=== PATIENT | female | born 1965 | race Caucasian/White ===

== ENCOUNTER → 2016-12-22 | Outpatient (CLI) | payer OTHER ==
[2016-12-22 08:59] LABS: Basophils # (A) 0.1 k/uL (0-0.2); Basophils % (A) 1 %; CH 29.8; CHCM 34.2; Eosinophils # (A) 0.2 k/uL (0-0.7); Eosinophils % (A) 2 %; HCT 51.3 % (34.0-46.0); HDW 2.68; HGB 17.2 gm/dL (11.4-16.0); Luc # (Auto) 0.18; Luc % (Auto) 1; Lymphocytes # (A) 2.5 k/uL (1.0-4.8); Lymphocytes % (A) 19 %; MCH 29.3 pg (25.0-35.0); MCHC 33.4 g/dL (31.0-37.0); MCV 87.7 fL (80.0-100.0); Monocytes # (A) 0.7 k/uL (0-1.0); Monocytes % (A) 5 %; Neutrophils # (A) 9.3 k/uL (1.3-7.7); Neutrophils % (A) 72 %; RBC 5.86 m/uL (3.80-5.40); RDW 14.5 % (11.5-15.5); WBC 12.9 k/uL (3.8-10.6)
[2016-12-22 10:27] LABS: ALT 37 U/L (9-52); AST 22 U/L (14-36); Alkaline Phosphatase 114 U/L (38-126); Anion Gap 13 mmol/L; Blood Urea Nitrogen 15 mg/dL (7-17); C Reactive Protein 15.9 mg/L (<10.0); Calcium 10.7 mg/dL (8.4-10.2); Carbon Dioxide 27 mmol/L (22-30); Chloride 100 mmol/L (98-107); Cholesterol 189 mg/dL (<200); Creatine Kinase 47 U/L (30-135); Glucose 117 mg/dL (74-99); HDL Cholesterol 67 mg/dL (40-60); Lithium 0.8 mmol/L; Magnesium 2.1 mg/dL (1.6-2.3); Non-African American GFR(MDRD) 58 (>60 ml/min/1.73 sqM); Potassium 3.4 mmol/L (3.5-5.1); Sodium 140 mmol/L (137-145); Total Bilirubin 0.8 mg/dL (0.2-1.3); Total Protein 7.8 g/dL (6.3-8.2); Uric Acid 10.1 mg/dL (3.7-7.4)
[2016-12-22 12:07] LABS: Hemoglobin A1C 5.6 % (4.2-6.1)
[2016-12-22 12:20] LABS: Erythrocyte Sedimentation Rate 9 mm/hr (0-20)
[2016-12-22 13:54] LABS: Vitamin B12 913 pg/mL (239-931)
== END | disposition home or self-care (01) ==
LOC: LABWHC1 08:28
PROVIDERS: ATTEND Family Medicine
DX: N18.3 Chronic kidney disease, stage 3 (moderate) (principal); E03.9 Hypothyroidism, unspecified; F31.9 Bipolar disorder, unspecified
CPT/HCPCS: 36415; 80053; 80061; 80178; 82550; 82607; 83036; 83735; 84439; 84443; 84550; 85025; 85652; 86140

== ENCOUNTER → 2017-08-17 | Outpatient (CLI) | payer OTHER ==
[2017-08-17 08:53] LABS: Basophils % (A) 0 %; Eosinophils # (A) 0.2 k/uL (0-0.7); Eosinophils % (A) 2 %; HCT 42.2 % (34.0-46.0); HGB 14.6 gm/dL (11.4-16.0); Lymphocytes # (A) 2.5 k/uL (1.0-4.8); Lymphocytes % (A) 19 %; MCH 28.3 pg (25.0-35.0); MCHC 34.6 g/dL (31.0-37.0); MCV 81.9 fL (80.0-100.0); Mean Platelet Volume 8.8; Monocytes # (A) 0.6 k/uL (0-1.0); Monocytes % (A) 5 %; Neutrophils # (A) 9.3 k/uL (1.3-7.7); Neutrophils % (A) 72 %; Platelet Count 268 k/uL (150-450); RBC 5.15 m/uL (3.80-5.40); RDW 13.8 % (11.5-15.5); WBC 12.9 k/uL (3.8-10.6)
[2017-08-17 10:17] LABS: Albumin 4.2 g/dL (3.5-5.0); C Reactive Protein 27.4 mg/L (<10.0); Calcium 10.7 mg/dL (8.4-10.2); Lithium 0.8 mmol/L; Total Bilirubin 0.7 mg/dL (0.2-1.3); Total Protein 6.8 g/dL (6.3-8.2)
[2017-08-17 10:26] LABS: T4, Free (Free Thyroxine) 1.47 ng/dL (0.78-2.19)
[2017-08-17 11:05] LABS: Erythrocyte Sedimentation Rate 34 mm/hr (0-20)
[2017-08-17 15:58] LABS: Vitamin D 25 Hydroxy 24.3 ng/mL (30.0-100.0)
[2017-08-17 19:01] LABS: Hemoglobin A1C 5.6 % (4.0-6.0)
== END | disposition home or self-care (01) ==
LOC: LABWHC1 08:19
PROVIDERS: ATTEND Family Medicine
DX: F31.9 Bipolar disorder, unspecified (principal); R60.0 Localized edema; N18.3 Chronic kidney disease, stage 3 (moderate); Z13.220 Encounter for screening for lipoid disorders; Z79.2 Long term (current) use of antibiotics
CPT/HCPCS: 36415; 80053; 80061; 80178; 82306; 82607; 83036; 84439; 84443; 85025; 85652; 86140

== ENCOUNTER → 2017-08-25 | Outpatient (CLI) | payer OTHER | LOC: LABWHC1 12:30 | PROVIDERS: ATTEND Family Medicine | DX: N18.3 Chronic kidney disease, stage 3 (moderate) (principal) | CPT/HCPCS: 36415; 84132 ==

== ENCOUNTER → 2017-10-06 | Outpatient (CLI) | payer OTHER ==
[2017-10-06 10:45] LABS: Potassium 3.3 mmol/L (3.5-5.1)
== END | disposition home or self-care (01) ==
LOC: LABWHC1 09:58
PROVIDERS: ATTEND Family Medicine
DX: E87.6 Hypokalemia (principal)
CPT/HCPCS: 36415; 82565; 84132

== ENCOUNTER → 2018-01-20 | Outpatient (CLI) | payer OTHER ==
[2018-01-20 09:52] LABS: Basophils # (A) 0.1 k/uL (0-0.2); Basophils % (A) 0 %; Eosinophils # (A) 0.3 k/uL (0-0.7); Eosinophils % (A) 2 %; HCT 47.8 % (34.0-46.0); HGB 15.5 gm/dL (11.4-16.0); Lymphocytes # (A) 2.5 k/uL (1.0-4.8); Lymphocytes % (A) 15 %; MCH 28.1 pg (25.0-35.0); MCHC 32.5 g/dL (31.0-37.0); MCV 86.7 fL (80.0-100.0); Monocytes # (A) 0.8 k/uL (0-1.0); Monocytes % (A) 5 %; Neutrophils # (A) 12.6 k/uL (1.3-7.7); Neutrophils % (A) 77 %; Platelet Count 285 k/uL (150-450); RBC 5.51 m/uL (3.80-5.40); RDW 13.7 % (11.5-15.5); WBC 16.4 k/uL (3.8-10.6)
[2018-01-20 10:15] LABS: Albumin 4.6 g/dL (3.5-5.0); C Reactive Protein 20.5 mg/L (<10.0); Calcium 11.3 mg/dL (8.4-10.2); Lithium 0.9 mmol/L; Potassium 3.3 mmol/L (3.5-5.1); Total Bilirubin 0.9 mg/dL (0.2-1.3); Total Protein 7.6 g/dL (6.3-8.2)
[2018-01-20 10:23] LABS: T4, Free (Free Thyroxine) 1.4 ng/dL (0.78-2.19)
[2018-01-20 12:25] LABS: Erythrocyte Sedimentation Rate 28 mm/hr (0-20)
[2018-01-20 20:03] LABS: Hemoglobin A1C 5.6 % (4.0-6.0)
== END | disposition home or self-care (01) ==
LOC: LABWHC1 08:47
PROVIDERS: ATTEND Family Medicine
DX: N18.3 Chronic kidney disease, stage 3 (moderate) (principal); E87.6 Hypokalemia; R73.01 Impaired fasting glucose; F31.9 Bipolar disorder, unspecified; E03.9 Hypothyroidism, unspecified; Z79.2 Long term (current) use of antibiotics
CPT/HCPCS: 36415; 80053; 80061; 80178; 83036; 84439; 84443; 84480; 85025; 85652; 86140

== ENCOUNTER → 2018-06-20 | Outpatient (CLI) | payer OTHER ==
[2018-06-20 08:56] LABS: Basophils % (A) 0 %; Eosinophils # (A) 0.2 k/uL (0-0.7); Eosinophils % (A) 2 %; HCT 40.7 % (34.0-46.0); HGB 13.6 gm/dL (11.4-16.0); Lymphocytes % (A) 15 %; MCH 28.4 pg (25.0-35.0); MCHC 33.3 g/dL (31.0-37.0); MCV 85.2 fL (80.0-100.0); Mean Platelet Volume 9.1; Monocytes # (A) 0.5 k/uL (0-1.0); Monocytes % (A) 4 %; Neutrophils # (A) 10.1 k/uL (1.3-7.7); Neutrophils % (A) 78 %; Platelet Count 234 k/uL (150-450); RBC 4.77 m/uL (3.80-5.40); RDW 13.9 % (11.5-15.5)
[2018-06-20 11:13] LABS: Erythrocyte Sedimentation Rate 86 mm/hr (0-20)
[2018-06-20 18:34] LABS: Albumin 4.3 g/dL (3.80-4.90); Albumin/Globulin Ratio 2.15 (1.60-3.17); Anion Gap 8.3 mmol/L (4.00-12.00); C Reactive Protein 5.9 mg/dL (0.0-0.8); Calcium 10.1 mg/dL (8.7-10.3); Carbon Dioxide 26.7 mmol/L (21.6-31.8); LDL Cholesterol,Calculated 72.8 mg/dL (0.0-131.0); Total Bilirubin 0.5 mg/dL (0.3-1.2); Total Protein 6.3 g/dL (6.2-8.2); VLDL Calculation 21.2 mg/dL (5.00-40.00)
[2018-06-20 18:35] LABS: T4, Free (Free Thyroxine) 1.3 ng/dL (0.80-1.80)
[2018-06-20 20:47] LABS: Hemoglobin A1C 5.6 % (4.0-6.0)
== END ==
LOC: LABWHC1 08:19
PROVIDERS: ATTEND Family Medicine
DX: E03.9 Hypothyroidism, unspecified (principal); N18.3 Chronic kidney disease, stage 3 (moderate); R73.01 Impaired fasting glucose
CPT/HCPCS: 36415; 80053; 80061; 83036; 84439; 84443; 85025; 85652; 86140

== ENCOUNTER → 2018-11-15 | Outpatient (CLI) | payer OTHER ==
[2018-11-15 15:59] LABS: African American GFR (CKD) 74.5 (60.0-200.0); Anion Gap 8.6 mmol/L (4.00-12.00); Calcium 10.8 mg/dL (8.7-10.3); Carbon Dioxide 27.4 mmol/L (21.6-31.8); Lithium 1.7 mmol/L (1.0-1.2); Magnesium 2.2 mg/dL (1.5-2.4); Potassium 3.7 mmol/L (3.5-5.5)
== END | disposition home or self-care (01) ==
LOC: LABWHC1 08:58
PROVIDERS: ATTEND Family Medicine
DX: F31.62 Bipolar disorder, current episode mixed, moderate (principal); E87.6 Hypokalemia; N18.3 Chronic kidney disease, stage 3 (moderate); E83.42 Hypomagnesemia
CPT/HCPCS: 36415; 80048; 80178; 83735

== ENCOUNTER → 2024-05-15 | Outpatient (CLI) | payer BC ==
--- NOTE | 2024-05-15 13:09 | CT ---
EXAMINATION TYPE: CT hip RT wo con DATE OF EXAM: 05/15/2024 COMPARISON: None. CLINICAL INDICATION: Female, 58 years old with history of M25.551 R hip pain; PHH, RT hip FATIMAH protoc ol CT DLP: 1506 mGycm Automated exposure control for dose reduction was used. FINDINGS: Exam is for surgical treatment planning and not for diagnostic purposes. There is incidental advanced degenerative change and deformity of the right hip and acetabulum. There are surgical changes to the bilateral proximal tibias through healed fracture deformities partially imaged. IMPRESSION: As above. [facility], , 05/15/2024 1:07 PM
== END | disposition home or self-care (01) ==
LOC: RADCTMAIN 10:48
PROVIDERS: ATTEND Orthopaedic Surgery
DX: M16.11 Unilateral primary osteoarthritis, right hip (principal)

== ENCOUNTER 2024-06-23 09:44 | Day surgery (SDC) | payer BC ==
[~2024-06-23 09:44] MED LIST: ACETAMINOPHEN TAB 500 MG TAB PO PRN; HYDROmorphone 0.5 MG/0.5 ML SYRINGE IVP PRN; TRANEXAMIC 1,000 MG/100ML-NACL 1,000 MG in SALINE 1 100ML.BAG IV PRN; TRANEXAMIC 1,000 MG/100ML-NACL 1,000 MG in SALINE 1 100ML.BAG IVPB PRN
[2024-06-23] MEDS: DOCUSATE 100 MG CAP PO PRN (10:43)
[2024-06-23] MEDS: LACTATED RINGERS 1,000 ML IV SCH (10:43)
[2024-06-23] MEDS: oxyCODONE ER 10 MG TAB.ER.12H PO PRN (10:43)
[2024-06-23] MEDS: DEXAMETHASONE SOD PHOSPHATE 10 MG/ML 1 ML VIAL IV PRN (10:44)
[2024-06-23] MEDS: KETOROLAC 15 MG/ML 1 ML VIAL IVP PRN (10:44)
[2024-06-23] MEDS: ONDANSETRON 4 MG/2 ML VIAL IVP PRN (10:44)
[2024-06-23] MEDS: FAMOTIDINE 20 MG/2 ML VIAL IVP PRN (10:45)
[2024-06-23] MEDS: IV FLUID CONTINUATION 1,000 ML IV ONE (10:53)
[2024-06-23] MEDS ORDERED: VANCOMYCIN IV PER PHARMACY 1 EACH MISC MISCELLANE PRN (11:08)
[2024-06-23] MEDS: MIDAZOLAM 2 MG/2 ML VIAL IV PRN (11:10)
[2024-06-23] MEDS: IPRATROPIUM-ALBUTEROL 3 ML NEB INHALATION STA (11:24)
[2024-06-23] MEDS ORDERED: NEOSTIGMINE 1 MG/ML 10 ML VIAL ONE (11:31)
[2024-06-23] MEDS ORDERED: HYDROmorphone (PF) 1 MG/ML ONE (11:31)
[2024-06-23] MEDS ORDERED: ALBUMIN HUMAN 5% (25gm) 500 ML VIAL IVPB ONE (11:31)
[2024-06-23] MEDS ORDERED: ROPIVACAINE 5 MG/ML 30 ML VIAL ONE (11:31)
[2024-06-23] MEDS ORDERED: SUCCINYLCHOLINE CHLORIDE 200 MG/10 ML VIAL IV ONE (11:31)
[2024-06-23] MEDS ORDERED: MIDAZOLAM 2 MG/2 ML VIAL ONE (11:31)
[2024-06-23] MEDS ORDERED: DEXAMETHASONE SOD PHOSPHATE 4 MG/ML 1 ML VIAL ONE (11:31)
[2024-06-23] MEDS ORDERED: PHENYLEPHRINE-0.9% NACL SYG 1,000 MCG/10 ML SYRINGE ONE (11:31)
[2024-06-23] MEDS ORDERED: ROCURONIUM 10 MG/ML (5 ML VIAL) IV ONE (11:31)
[2024-06-23] MEDS ORDERED: PROPOFOL 10 MG/ML 20 ML VIAL IV ONE (11:31)
[2024-06-23] MEDS ORDERED: fentaNYL (PF) 50 MCG/ML 2 ML AMP ONE (11:31)
[2024-06-23] MEDS ORDERED: LIDOCAINE 1% INJ 10MG/ML (20 ML MDV) ONE (11:31)
[2024-06-23] MEDS ORDERED: TRANEXAMIC 1,000 MG/100ML-NACL PREMIX BAG ONE (11:31)
[2024-06-23] MEDS ORDERED: GLYCOPYRROLATE 0.2 MG/ML 2 ML VIAL ONE (11:31)
[2024-06-23] MEDS: ROPIVACAINE/EPI/CLONIDINE/KET 50 ML SYRINGE MISCELLANE PRN (11:53)
[2024-06-23] MEDS: VANCOMYCIN 1,750 MG in SODIUM CHLORIDE 0.9% 500 ML 500 ML IVPB PRN (12:12)
--- NOTE | 2024-06-23 12:45 | P.ANPRN ---
Procedure Note - Anesthesia - Nerve Block Performed Right Jiame Single Time Out Performed: Yes Date of Procedure: 06/23/24 Procedure Start Time: 11:09 Procedure Stop Time: 11:14 Location of Patient: PreOp Indication: Acute Post-Operative Pain, Analgesia, Requested by Surgeon Sedation Type: Sedate with meaningful contact maintained Preparation: Sterile Prep Position: Supine Catheter: None Needle Types: Pajunk Needle Gauge: 21 Ultrasound used to visualize needle placement: Yes Ultrasound used to observe medication spread: Yes Injectate: 0.5% Ropivacaine (see comment for volume) ([id number]) Blood Aspirated: No Pain Paresthesia on Injection Noted: No Resistance on Injection: Normal Image Stored and Saved: Yes Events: Uneventful and Well Tolerated
[2024-06-23] MEDS: VANCOMYCIN 1,000 MG VIAL MISCELLANE ONE (13:49)
--- NOTE | 2024-06-23 14:30 | FL ---
EXAMINATION TYPE: FL guidance operating room, XR Hip Limited RT DATE OF EXAM: 06/23/2024 CLINICAL HISTORY: Right hip fracture. TECHNIQUE: Fluoroscopy. Intraoperative limited views right hip. COMPARISON: CT right hip May 15, 2024. FINDINGS: Fluoroscopic guidance was provided during right hip replacement procedure performed by Dr. Calderón. A total of 63 seconds of fluoroscopic time was utilized during the procedure and 9 spot i mages was acquired. Images acquired show eventual placement of metallic hardware from total hip arthroplasty satisfactory position on frontal projection. TOTAL DAP = 4.0594 Gycm2. IMPRESSION: As Above. [facility], , 06/23/2024 2:28 PM
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
[2024-06-23] MEDS ORDERED: HYDROmorphone 0.5 MG/0.5 ML SYRINGE IVP PRN ×2 (14:51)
[2024-06-23] MEDS ORDERED: NALOXONE 0.4 MG/ML 1 ML VIAL IV PRN (14:51)
[2024-06-23] MEDS ORDERED: ACETAMINOPHEN TAB 325 MG TAB PO PRN (14:51)
[2024-06-23] MEDS ORDERED: HYDROmorphone 1 MG/ML 1 ML SYRINGE IVP PRN (14:51)
[2024-06-23] MEDS ORDERED: hydrOXYzine pamoate 25 MG CAP PO PRN (14:51)
[2024-06-23] MEDS: SODIUM CHLORIDE 0.9% 1,000 ML IV SCH (16:05)
[2024-06-23] MEDS: SULFAMETHOX-TMP 800-160MG 1 EACH TAB PO SCH (21:48)
[2024-06-23] MEDS: SENNOSIDES-DOCUSATE SODIUM 1 EACH TAB PO SCH (21:49)
[2024-06-23] MEDS: OXcarbazepine 300 MG TAB PO SCH (21:49)
[2024-06-23] MEDS: BENZTROPINE MESYLATE 1 MG TAB PO SCH (21:49)
[2024-06-24] MEDS: HYDROcodone/APAP 5-325MG 1 EACH TAB PO PRN (05:05)
[2024-06-24 07:47] LABS: Basophils % (A) 0 %; Eosinophils % (A) 0 %; HCT 30.4 % (34.0-46.0); HGB 9.7 gm/dL (11.4-16.0); Lymphocytes # (A) 1.2 k/uL (1.0-4.8); Lymphocytes % (A) 8 %; MCH 28.8 pg (25.0-35.0); MCHC 31.9 g/dL (31.0-37.0); MCV 90.4 fL (80.0-100.0); Mean Platelet Volume 10.5; Monocytes # (A) 0.6 k/uL (0-1.0); Monocytes % (A) 4 %; Neutrophils # (A) 13.3 k/uL (1.3-7.7); Neutrophils % (A) 87 %; Platelet Count 186 k/uL (150-450); RBC 3.36 m/uL (3.80-5.40); RDW 13.6 % (11.5-15.5); WBC 15.2 k/uL (3.8-10.6)
--- NOTE | 2024-06-24 08:40 | P.PN ---
Subjective Progress Note Date: 06/24/24 Patient is resting comfortably in bed. No acute events per nursing. Patient states she has minimal pain in her right hip this morning. She is been up to the bathroom. She denies chest pain or shortness of breath. Objective - Vital Signs Vital signs: Vital Signs Temp 97.6 F 06/24/24 07:20 Pulse 79 06/24/24 07:20 Resp 18 06/24/24 07:20 BP 123/79 06/24/24 07:20 Pulse Ox 98 06/24/24 07:20 FiO2 Intake & Output 06/23/24 06/24/24 06/24/24 18:59 06:59 18:59 Intake Total 1175 Output Total 1100 Balance 75 Weight 117.4 kg Intake: IV 1175 Output: Urine 100 Estimated Blood Loss 1000 Other: Voiding Method Toilet # Voids 3 - Exam Patient is resting comfortably in bed. She is alert and able to answer quest ions. Her incisional wound VAC is in place with good seal. Thigh and calf are soft. Femoral nerve function is intact. Able to actively plantarflex and dorsiflex her ankle and her toes. - Labs CBC & Chem 7: 06/24/24 04:18 Labs: Abnormal Lab Results - Last 24 Hours (Table) 06/24/24 Range/Units 04:18 WBC 15.2 H (3.8-10.6) k/uL RBC 3.36 L (3.80-5.40) m/uL Hgb 9.7 L (11.4-16.0) gm/dL Hct 30.4 L (34.0-46.0) % Neutrophils # 13.3 H (1.3-7.7) k/uL Assessment and Plan Assessment: Postoperative day #1 status post complex right direct anterior total hip arthroplasty, doing well Plan: 1. Weightbearing as tolerated on the operative extremity. Up with assistance and a walker. 2. DVT prophylaxis with Eliquis given prior history of DVT. Perioperative antibiotics followed by low-dose oral suppression given history of MRSA i nfection 3. Physical therapy for gait training and mobilization 4. Leave surgical dressing in place. 5. Internal medicine for perioperative medical management 6. Disposition: I would like to keep the patient for an additional 24 to 48 hours given the complexity of her total hip replacement and baseline functional status. We will see how she does with physical therapy and reassess her tomorrow to determine discharge home versus rehab.
[2024-06-24] MEDS: RIVAROXABAN 10 MG TAB PO SCH (08:42)
[2024-06-24] MEDS: FAMOTIDINE 20 MG TAB PO SCH (08:42)
[2024-06-24] MEDS: LEVOTHYROXINE 75 MCG TAB PO SCH (11:35)
[2024-06-24] MEDS: CYANOCOBALAMIN 500 MCG TAB PO SCH (11:38)
[2024-06-24] MEDS: HYDROcodone/APAP 10-325MG 1 EACH TAB PO PRN (13:30)
[2024-06-24] MEDS: DOXYCYCLINE 100 MG TABLET PO SCH (20:05)
--- NOTE | 2024-06-25 00:08 | P.CONS ---
History of Present Illness - Reason for Consult Consult date: 06/24/24 Medical management status post right hip arthroplasty - History of Present Illness This is a very pleasant 58-year-old female who was admitted under orthopedic services status post right hip arthroplasty. Patient is postop day 1 doing relatively well and wound VAC is intact with good suction. White count mildly elevated at 15, likely reactive and recommend monitoring and follow-up on repeat labs. Patient reports she follows with Dr. Espinoza in the outpatient setting with a past medical history of DVT, thyroid disorder, depression, morbid obesity. Patient denies alcohol smoking, or illicit drug use. Patient reports she did go undergo presurgical clearance prior to this surgery. Patient reports she chronically takes doxycycline for previous MRSA infection and other home medications reviewed and resumed as appropriate. Recommend monitoring blood pressure and will hold diuretics for now as patient also has chronic lower extremity swelling. REVIEW OF SYSTEMS: CONSTITUTIONAL: No fever, no malaise, no fatigue. HEENT: No recent visual problems or hearing problems. Denied any sore throat. CARDIOVASCULAR: No chest pain, orthopnea, PND, no palpitations, no syncope. PULMONARY: No shortness of breath, no cough, no hemoptysis. GASTROINTESTINAL: No diarrhea, no nausea, no vomiting, no abdominal pain. NEUROLOGICAL: No headaches, no weakness, no numbness. HEMATOLOGICAL: Denies any bleeding or petechiae. GENITOURINARY: Denies any burning micturition, frequency, or urgency. MUSCULOSKELETAL/RHEUMATOLOGICAL: Denies any joint pain, swelling, or any muscle pain. ENDOCRINE: Denies any polyuria or polydipsia. The rest of the 14-point review of systems is negative. PHYSICAL EXAMINATION: GENERAL: The patient is alert and oriented x3, not in any acute distress. Well developed, well nourished. Morbidly obese HEENT: Pupils are round and equally reacting to light. EOMI. No scleral icterus. No conjunctival pallor. Normocephalic, atraumatic. No pharyngeal erythema. No thyromegaly. CARDIOVASCULAR: S1 and S2 present. No murmurs, rubs, or gallops. PULMONARY: Chest is clear to auscultation, no wheezing or crackles. ABDOMEN: Soft, obese, nontender, nondistended, normoactive bowel sounds. No pal pable organomegaly. MUSCULOSKELETAL: No joint swelling or deformity. EXTREMITIES: No cyanosis, clubbing, or pedal edema. Right hip surgical dressing is dry and intact with good suction noted on wound VAC NEUROLOGICAL: Gross neurological examination did not reveal any focal deficits. SKIN: No rashes. Assessment: Status post complex right total hip arthroplasty Mild leukocytosis, likely reactive as patient does not appear infectious, denies shortness of breath, cough, or burning with urination History of DVT maintained on Eliquis Hypothyroidism History of depression Morbid obesity with a BMI of 43.1 GI prophylaxis DVT prophylaxis Full code Plan: Patient admitted under orthopedic services status post right hip doing relatively well. Patient reports she worked with physical therapy and did well although given her extensive arthroplasty, orthopedics recommend monitoring overnight and will reeval with physical therapy and consult to case management/social work in the event patient requires rehab. Patient will likely be going home with home care Incentive spirometer at the bedside encouraged continued use at least 10 times every hour while awake Home medications reviewed and resumed and recommend holding blood pressure medication including spironolactone as patient is currently normotensive. Will resume blood pressure medication as appropriate Patient chronically takes doxycycline for previous MRSA infection and this is being resumed. Encouraged increase activity as tolerated with sitting up in the chair and reevaluation by PT/OT therapy Thank you kindly for this consultation. We will continue to follow with orthopedics during hospitalization. The impression and plan of care has been dictated by Rajni Garcia, Nurse Practitioner as directed. Dr. Ilya MD I have performed a history and examination and MDM of this patient, discussed the same with the dictator, and agree with the dictator's assessment and plan as written ,documented as a scribe. Based on total visit time, I have performed more than 50% of the visit. Past Medical History Past Medical History: Deep Vein Thrombosis (DVT), Thyroid Disorder Additional Past Medical History / Comment(s): pt unable to confirm if had dvt while at rehab at [facility] History of Any Multi-Drug Resistant Organisms: MRSA Year Discovered:: 09/19/14 MDRO Source:: lt knee Past Surgical History: Adenoidectomy, Tonsillectomy Additional Past Surgical History / Comment(s): bilateral leg and lt arm surgery with screws and pins Past Anesthesia/Blood Transfusion Reactions: No Reported Reaction Additional Past Anesthesia/Blood Transfusion Reaction / Comm: no blood tx hx Past Psychological History: Depression Additional Psychological History / Comment(s): The patient is . Lives with her parents. Does not have a history of significant alcohol or recreational drug use It is noted he has the extensive psychiatric history. 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 Smoking Status: Former smoker Past Alcohol Use History: Occasional Past Drug Use History: None Reported - Past Family History Father Family Medical History: Cancer Additional Family Medical History / Comment(s): prostate cancer Mother Family Medical History: No Reported History Medications and Allergies Home Medications Medication Instructions Recorded Confirmed Type Cyanocobalamin [Vitamin B-12] 500 mcg PO DAILY@1200 10/02/14 06/23/24 History Levothyroxine Sodium [Synthroid] 75 mcg PO DAILY 10/02/14 06/23/24 History metOLazone [Zaroxolyn] 2.5 mg PO MOWEFR 10/09/14 06/23/24 History Cholecalciferol [Vitamin D3] 1 tab PO DAILY 02/19/15 06/23/24 History Doxycycline Hyclate 100 mg PO BID 03/26/15 06/23/24 History ARIPiprazole [Abilify] 20 mg PO DAILY 06/20/24 06/23/24 History Benztropine Mesylate 1 mg PO BID 06/20/24 06/23/24 History OXcarbazepine [Trileptal] 300 mg PO BID 06/20/24 06/23/24 History Propranolol HCl 80 mg PO DAILY 06/20/24 06/23/24 History Spironolactone 50 mg PO DAILY 06/20/24 06/23/24 History Acetaminophen Tab [Tylenol Tab] 1,000 mg PO Q6HR 06/23/24 06/23/24 History Allergies Allergy/AdvReac Type Severity Reaction Status Date / Time No Known Allergies Allergy Verified 06/23/24 10:25 Physical Exam Vitals: Vital Signs Temp Pulse Pulse Pulse Resp BP Pulse Ox 06/24/24 07:20 97.6 F 79 18 123/79 98 06/24/24 01:33 98.0 F 86 16 110/65 95 06/23/24 19:48 97.4 F L 68 17 100/64 97 06/23/24 16:56 97.3 F L 68 16 107/67 99 06/23/24 16:23 67 16 114/60 96 06/23/24 15:59 66 16 110/58 98 06/23/24 15:32 64 16 122/66 100 06/23/24 15:17 68 16 116/65 100 06/23/24 15:02 70 16 113/57 100 06/23/24 14:49 97 F L 74 16 114/57 100 06/23/24 11:20 69 16 119/64 97 06/23/24 10:23 97.2 F L 74 16 135/62 98 Intake and Output 06/23/24 06/24/24 06/24/24 22:59 06:59 14:59 Other: Voiding Method Toilet # Voids 3 Weight 117.4 kg Results CBC & Chem 7: 06/24/24 04:18 Labs: Abnormal Lab Results - Last 24 Hours (Table) 06/24/24 Range/Units 04:18 WBC 15.2 H (3.8-10.6) k/uL RBC 3.36 L (3.80-5.40) m/uL Hgb 9.7 L (11.4-16.0) gm/dL Hct 30.4 L (34.0-46.0) % Neutrophils # 13.3 H (1.3-7.7) k/uL
--- NOTE | 2024-06-25 08:21 | P.PN ---
Subjective Progress Note Date: 06/25/24 Patient is doing well this morning. She had some increased pain after her block wore off yesterday at 6 PM. She has been up in the chair. She denies chest pain or shortness of breath. Objective - Vital Signs Vital signs: Vital Signs Temp 98.3 F 06/25/24 01:02 Pulse 103 H 06/25/24 01:02 Resp 14 06/25/24 01:02 BP 99/65 06/25/24 01:02 Pulse Ox 93 L 06/25/24 01:02 FiO2 Intake & Output 06/24/24 06/25/24 06/25/24 18:59 06:59 18:59 Intake Total 200 540 Output Total 100 Balance 100 540 Intake: Oral 200 540 Output: Urine 100 Other: Voiding Method Toilet # Voids 4 2 - Exam Patient is sitting up in a chair at bedside. An incisional wound VAC is in place over the anterior aspect of the hip. The thigh is soft and compressible. There is some bruising on the thigh but no drainage or yoan erythema. She is able to actively extend her knee. She can plantarflex and dorsiflex her ankle and her toes. - Labs CBC & Chem 7: 06/24/24 04:18 Assessment and Plan Assessment: Postop day 2 status post complex right total hip replacement, doing well Plan: Continue treatment as outlined yesterday. The patient is doing relatively well. Doxycycline has been resumed. DVT prophylaxis with Eliquis given her history of DVT. We will plan on keeping the patient until tomorrow so she can have 1 more session with physical therapy. If she is still doing well at that time we will plan on discharge home tomorrow.
[2024-06-25 09:45] LABS: Basophils # (A) 0.05 X 10*3/uL (0.00-0.10); Basophils % (A) 0.6 %; Eosinophils # (A) 0.11 X 10*3/uL (0.04-0.35); Eosinophils % (A) 1.2 %; HCT 25.9 % (37.2-46.3); HGB 8.7 g/dL (12.0-15.0); Lymphocytes # (A) 1.98 X 10*3/uL (0.90-5.00); Lymphocytes % (A) 22.4 %; MCH 29.8 pg (27.0-32.0); MCHC 33.6 g/dL (32.0-37.0); MCV 88.7 FL (80.0-97.0); Mean Platelet Volume 12.5 FL (9.5-12.2); Monocytes # (A) 0.85 X 10*3/uL (0.20-1.00); Monocytes % (A) 9.6 %; NRBC Per 100 WBC 0 X 10*3/uL (0.00-0.01); Neutrophils # (A) 5.83 X 10*3/uL (1.80-7.70); Neutrophils % (A) 65.9 %; Platelet Count 161 X 10*3/uL (140-440); RBC 2.92 X 10*6/uL (4.10-5.20); RDW 13.5 % (11.5-14.5); WBC 8.85 X 10*3/uL (4.50-10.00)
[2024-06-25 09:59] LABS: BUN/Creat Ratio 11.33 Ratio (12.00-20.00); Blood Urea Nitrogen 10.2 mg/dL (9.0-27.0); Calcium 9.6 mg/dL (8.7-10.3); Carbon Dioxide 26.7 mmol/L (21.6-31.8); Chloride 104 mmol/L (96-109); Glucose 131 mg/dL (70-110); Magnesium 1.7 mg/dL (1.5-2.4); Potassium 4.3 mmol/L (3.5-5.5); Sodium 138 mmol/L (135-145)
--- NOTE | 2024-06-26 04:01 | P.PN ---
Subjective Progress Note Date: 06/25/24 - Reason for Consult Consult date: 06/24/24 Medical management status post right hip arthroplasty - History of Present Illness This is a very pleasant 58-year-old female who was admitted under orthopedic services status post right hip arthroplasty. Patient is postop day 1 doing relatively well and wound VAC is intact with good suction. White count mildly elevated at 15, likely reactive and recommend monitoring and follow-up on repeat labs. Patient reports she follows with Dr. Espinoza in the outpatient setting with a past medical history of DVT, thyroid disorder, depression, morbid obesity. Patient denies alcohol smoking, or illicit drug use. Patient reports she did go undergo presurgical clearance prior to this surgery. Patient reports she chronically takes doxycycline for previous MRSA infection and other home medications reviewed and resumed as appropriate. Recommend monitoring blood pressure and will hold diuretics for now as patient also has chronic lower extremity swelling.b 06/25/2024 Patient is seen in follow-up today with no acute overnight issues noted. Patient reports a little more pain in the right hip today although appears to be doing relatively well. Plan will be for reevaluation with physical therapy tomorrow prior to discharging home with home care versus possible ECF. A.m. labs reviewed and within normal limits. White count has improved and normalized. And will resume blood pressure medications as appropriate. Encouraged continued incentive spirometer use at least 10 times every hour while awake. Review of systems: Constitutional: No reports of fatigue, fever, or chills Cardiovascular: No reports of chest pain or palpitations Respiratory: No reports of shortness of breath or cough GI: No reports of nausea, vomiting, or diarrhea : No reports of dysuria or retention Neurovascular: No reports of weakness, reports some right hip discomfort All medications have been reviewed The rest of the 14-point review of systems is negative. PHYSICAL EXAMINATION: GENERAL: The patient is alert and oriented x3, not in any acute distress. Well developed, well nourished. Morbidly obese HEENT: Pupils are round and equally reacting to light. EOMI. No scleral icterus. No conjunctival pallor. Normocephalic, atraumatic. No pharyngeal erythema. No thyromegaly. CARDIOVASCULAR: S1 and S2 present. No murmurs, rubs, or gallops. PULMONARY: Chest is clear to auscultation, no wheezing or crackles. ABDOMEN: Soft, obese, nontender, nondistended, normoactive bowel sounds. No palpable organomegaly. MUSCULOSKELETAL: No joint swelling or deformity. EXTREMITIES: No cyanosis, clubbing, or pedal edema. Right hip surgical dressing is dry and intact with good suction noted on wound VAC NEUROLOGICAL: Gross neurological examination did not reveal any focal deficits. SKIN: No rashes. Assessment: Status post complex right total hip arthroplasty Mild leukocytosis, likely reactive as patient does not appear infectious, denies shortness of breath, cough, or burning with urination. White count has normalized History of DVT maintained on Eliquis Hypothyroidism History of depression Morbid obesity with a BMI of 43.1 GI prophylaxis DVT prophylaxis Full code Plan: Patient admitted under orthopedic services status post right hip doing relatively well. Patient reports she worked with physical therapy and did well although given her extensive arthroplasty, orthopedics recommend monitoring overnight and will reeval with physical therapy on Wednesday morning and consult to case management/social work in the event patient requires rehab. Patient will likely be going home with home care Incentive spirometer at the bedside encouraged continued use at least 10 times every hour while awake Home medications reviewed and resumed and recommend holding blood pressure medication including spironolactone as patient is currently normotensive. Will resume blood pressure medication as appropriate Patient chronically takes doxycycline for previous MRSA infection and this is being resumed. Encouraged increase activity as tolerated with sitting up in the chair and reevaluation by PT/OT therapy Thank you kindly for this consultation. We will continue to follow with orthopedics during hospitalization. The impression and plan of care has been dictated by Rajni Garcia, Nurse Practitioner as directed. Dr. Ilya MD I have performed a history and examination and MDM of this patient, discussed the same with the dictator, and agree with the dictator's assessment and plan as written ,documented as a scribe. Based on total visit time, I have performed more than 50% of the visit. Objective - Vital Signs Vital signs: Vital Signs Temp 98.0 F 06/25/24 07:47 Pulse 130 H 06/25/24 07:47 Resp 16 06/25/24 07:47 BP 114/65 06/25/24 07:47 Pulse Ox 95 06/25/24 07:47 FiO2 Intake & Output 06/24/24 06/25/24 06/25/24 18:59 06:59 18:59 Intake Total 200 540 Output Total 100 Balance 100 540 Intake: Oral 200 540 Output: Urine 100 Other: Voiding Method Toilet # Voids 4 2 - Labs CBC & Chem 7: 06/25/24 05:23 06/25/24 05:23
[2024-06-26 07:24] VITALS: BP 122/82; PULSE 95; RESP 18; TEMP 97.7
[2024-06-26 08:18] LABS: Basophils # (A) 0.04 X 10*3/uL (0.00-0.10); Basophils % (A) 0.5 %; Eosinophils # (A) 0.19 X 10*3/uL (0.04-0.35); Eosinophils % (A) 2.3 %; HCT 26.3 % (37.2-46.3); HGB 8.8 g/dL (12.0-15.0); Lymphocytes # (A) 2.18 X 10*3/uL (0.90-5.00); Lymphocytes % (A) 26.1 %; MCH 29.5 pg (27.0-32.0); MCHC 33.5 g/dL (32.0-37.0); MCV 88.3 FL (80.0-97.0); Mean Platelet Volume 12.2 FL (9.5-12.2); Monocytes # (A) 0.78 X 10*3/uL (0.20-1.00); Monocytes % (A) 9.3 %; NRBC Per 100 WBC 0 X 10*3/uL (0.00-0.01); Neutrophils # (A) 5.12 X 10*3/uL (1.80-7.70); Neutrophils % (A) 61.3 %; Platelet Count 177 X 10*3/uL (140-440); RBC 2.98 X 10*6/uL (4.10-5.20); RDW 13.8 % (11.5-14.5); WBC 8.35 X 10*3/uL (4.50-10.00)
--- NOTE | 2024-06-26 08:28 | P.DS ---
Providers Attending physician: Jhonny Calderón Consults: 06/23/24 14:51 Consult Physician Routine Consulting Provider: Jam Brown Consult Reason/Comments: Postop medical management Do you want consulting provider notified?: Yes Primary care physician: [facility] Course: This is a 58-year-old patient, with past medical history of severe right hip osteoarthritis, who failed nonsurgical conservative management. On 06/15/2024 the patient presented to the [facility] pre-op department for scheduled right direct anterior total hip arthroplasty with Dr. Calderón. The patient tolerated the procedure well. The patient was transferred to the orthopedic floor. The patient had no acute events over night. The patient's pain has been well-controlled. Patient was examined at bedside. Patient is resting comfortably in bed. No apparent distress. They are awake, alert and able to answer questions. Inspection: The surgical wound VAC is intact. The skin surrounding the dressing is free of erythema. There is mild swelling in the operative thigh. Palpation: The operative calf is soft to compression. No calf tenderness. Neurovascular: Operative femoral nerve function is intact. The patient is able to actively plantarflex and dorsiflex their operative ankle and toes. Operative extremity sensation is intact to light touch throughout Their operative foot appears well perfused. Start form completed and placed in the patient's chart. Patient worked with physical therapy and it was determined they could discharge home. Plan to discharge home today. Plan follow up in two weeks in our office. Please see med rec for a list of accurate medications. Assessment: Postop day #3 status post right total hip arthroplasty for severe right hip osteoarthritis Right hip pain Plan - Discharge Summary Discharge Rx Participant: No New Discharge Prescriptions: New HYDROcodone/APAP 5-325MG [[place] 5] 1 - 2 each PO Q6HR PRN #48 tab PRN Reason: Pain Sennosides-Docusate Sodium [Senokot-S] 1 tab PO BID PRN #60 tablet PRN Reason: Constipation Rivaroxaban [Xarelto] 10 mg PO DAILY #35 tab Omeprazole 20 mg PO DAILY #30 tab No Action Levothyroxine Sodium [Synthroid] 75 mcg PO DAILY Cyanocobalamin [Vitamin B-12] 500 mcg PO DAILY@1200 metOLazone [Zaroxolyn] 2.5 mg PO MOWEFR Cholecalciferol [Vitamin D3] 1 tab PO DAILY Doxycycline Hyclate 100 mg PO BID Propranolol HCl 80 mg PO DAILY Benztropine Mesylate 1 mg PO BID OXcarbazepine [Trileptal] 300 mg PO BID ARIPiprazole [Abilify] 20 mg PO DAILY Spironolactone 50 mg PO DAILY Acetaminophen Tab [Tylenol Tab] 1,000 mg PO Q6HR Discharge Medication List Cyanocobalamin [Vitamin B-12] 500 mcg PO DAILY@1200 10/02/14 [History] Levothyroxine Sodium [Synthroid] 75 mcg PO DAILY 10/02/14 [History] metOLazone [Zaroxolyn] 2.5 mg PO MOWEFR 10/09/14 [History] Cholecalciferol [Vitamin D3] 1 tab PO DAILY 02/19/15 [History] Doxycycline Hyclate 100 mg PO BID 03/26/15 [History] ARIPiprazole [Abilify] 20 mg PO DAILY 06/20/24 [History] Benztropine Mesylate 1 mg PO BID 06/20/24 [History] OXcarbazepine [Trileptal] 300 mg PO BID 06/20/24 [History] Propranolol HCl 80 mg PO DAILY 06/20/24 [History] Spironolactone 50 mg PO DAILY 06/20/24 [History] Acetaminophen Tab [Tylenol Tab] 1,000 mg PO Q6HR 06/23/24 [History] HYDROcodone/APAP 5-325MG [[place] 5] 1 - 2 each PO Q6HR PRN #48 tab 06/26/24 [Rx] Omeprazole 20 mg PO DAILY #30 tab 06/26/24 [Rx] Rivaroxaban [Xarelto] 10 mg PO DAILY #35 tab 06/26/24 [Rx] Sennosides-Docusate Sodium [Senokot-S] 1 tab PO BID PRN #60 tablet 06/26/24 [Rx] Follow up Appointment(s)/Referral(s): Jhonny Calderón MD [Medical Doctor] - 2 Weeks Activity/Diet/Wound Care/Special Instructions: 1. Weight-bear as tolerated on your operative extremity unless instructed otherwise. Use a walker or other assistive device to ambulate. 2. Leave surgical dressing in place. If your dressing becomes saturated with blood, there is drainage, or the dressing becomes loose please contact the office. 3. It is okay to shower with your surgical dressing, but do not submerge in water (no hot tubs, bath's, swimming etc.) 4. Take your blood clot prevention medication as prescribed. Xarelto for DVT prophylaxis due to history of DVT. 5. While taking [place] or Percocet for pain take a stool softener (Ex: Colace) and drink lots of water. 6. Keep all follow-up appointments as scheduled. You will usually be seen in 1-2 weeks following surgery. 7. Please contact the office with any questions or concerns [phone] Discharge Disposition: HOME WITH HOME HEALTH SERVICES
--- NOTE | 2024-06-26 10:18 | P.PN ---
Subjective Progress Note Date: 06/26/24 - Reason for Consult Consult date: 06/24/24 Medical management status post right hip arthroplasty - History of Present Illness This is a very pleasant 58-year-old female who was admitted under orthopedic services status post right hip arthroplasty. Patient is postop day 1 doing relatively well and wound VAC is intact with good suction. White count mildly elevated at 15, likely reactive and recommend monitoring and follow-up on repeat labs. Patient reports she follows with Dr. Espinoza in the outpatient setting with a past medical history of DVT, thyroid disorder, depression, morbid obesity. Patient denies alcohol smoking, or illicit drug use. Patient reports she did go undergo presurgical clearance prior to this surgery. Patient reports she chronically takes doxycycline for previous MRSA infection and other home medications reviewed and resumed as appropriate. Recommend monitoring blood pressure and will hold diuretics for now as patient also has chronic lower extremity swelling.b 06/25/2024 Patient is seen in follow-up today with no acute overnight issues noted. Patient reports a little more pain in the right hip today although appears to be doing relatively well. Plan will be for reevaluation with physical therapy tomorrow prior to discharging home with home care versus possible ECF. A.m. labs reviewed and within normal limits. White count has improved and normalized. And will resume blood pressure medications as appropriate. Encouraged continued incentive spirometer use at least 10 times every hour while awake. 06/26/2024 Patient is seen in follow-up with no acute overnight issues. Patient was eval uated by physical therapy and did well and will be going home. Patient has been cleared for discharge by orthopedics and has been instructed to follow-up in the outpatient setting along with primary care provider. Patient denies any chest pain or shortness of breath. Patient tolerating diet with no reported nausea or vomiting. Home medications reviewed and resumed and patient instructed to res ume home medications including blood pressure medications at home. Review of systems: Constitutional: No reports of fatigue, fever, or chills Cardiovascular: No reports of chest pain or palpitations Respiratory: No reports of shortness of breath or cough GI: No reports of nausea, vomiting, or diarrhea : No reports of dysuria or retention Neurovascular: No reports of weakness, reports some right hip discomfort All medications have been reviewed The rest of the 14-point review of systems is negative. PHYSICAL EXAMINATION: GENERAL: The patient is alert and oriented x3, not in any acute distress. Well developed, well nourished. Morbidly obese HEENT: Pupils are round and equally reacting to light. EOMI. No scleral icterus. No conjunctival pallor. Normocephalic, atraumatic. No pharyngeal erythema. No thyromegaly. CARDIOVASCULAR: S1 and S2 present. No murmurs, rubs, or gallops. PULMONARY: Chest is clear to auscultation, no wheezing or crackles. ABDOMEN: Soft, obese, nontender, nondistended, normoactive bowel sounds. No palpable organomegaly. MUSCULOSKELETAL: No joint swelling or deformity. EXTREMITIES: No cyanosis, clubbing, or pedal edema. Right hip surgical dressing is dry and intact with good suction noted on wound VAC NEUROLOGICAL: Gross neurological examination did not reveal any focal deficits. SKIN: No rashes. Assessment: Status post complex right total hip arthroplasty Mild leukocytosis, likely reactive as patient does not appear infectious, denies shortness of breath, cough, or burning with urination. White count has normalized History of DVT maintained on Eliquis Hypothyroidism History of depression Morbid obesity with a BMI of 43.1 GI prophylaxis DVT prophylaxis Full code Plan: Patient admitted under orthopedic services status post right hip doing relatively well. Patient was able to work with physical therapy and will be going home with home care. Patient has been cleared by orthopedics and will be discharged today Incentive spirometer at the bedside encouraged continued use at least 10 times every hour while awake Home medications reviewed and resumed and recommend resuming blood pressure medications when getting home. Patient instructed to monitor blood pressure if she continues to have low readings and discussed with her primary care provider about possible medication adjustments Patient chronically takes doxycycline for previous MRSA infection and this is being resumed. Encouraged increase activity as tolerated with sitting up in the chair patient is medically stable. Thank you kindly for this consultation. We will continue to follow with orthopedics during hospitalization. The impression and plan of care has been dictated by Rajni Garcia, Nurse Practitioner as directed. Dr. Ilya MD I have performed a history and examination and MDM of this patient, discussed the same with the dictator, and agree with the dictator's assessment and plan as written ,documented as a scribe. Based on total visit time, I have performed more than 50% of the visit. I hate stupid fucking people Objective - Vital Signs Vital signs: Vital Signs Temp 97.7 F 06/26/24 06:55 Pulse 95 06/26/24 06:55 Resp 18 06/26/24 06:55 BP 122/82 06/26/24 06:55 Pulse Ox 99 06/26/24 06:55 FiO2 Intake & Output 06/25/24 06/26/24 06/26/24 18:59 06:59 18:59 Other: Voiding Method Toilet Toilet # Voids 3 1 - Labs CBC & Chem 7: 06/26/24 02:52 06/25/24 05:23 Labs: Abnormal Lab Results - Last 24 Hours (Table) 06/26/24 Range/Units 02:52 RBC 2.98 L (4.10-5.20) X 10*6/uL Hgb 8.8 L (12.0-15.0) g/dL Hct 26.3 L (37.2-46.3) %
== END 2024-06-26 12:55 | disposition home health service (06) ==
LOC: OR 09:44 → 4SSUR 15:52 → OR 06-26 12:55
PROVIDERS: ATTEND Orthopaedic Surgery
DX: M16.11 Unilateral primary osteoarthritis, right hip (principal); E03.9 Hypothyroidism, unspecified; E66.01 Morbid (severe) obesity due to excess calories; G89.18 Other acute postprocedural pain; F32.A Depression, unspecified; Z68.41 Body mass index [BMI] 40.0-44.9, adult; Z79.01 Long term (current) use of anticoagulants; Z79.890 Hormone replacement therapy; Z79.899 Other long term (current) drug therapy; Z86.718 Personal history of other venous thrombosis and embolism; Z87.891 Personal history of nicotine dependence; Z86.14 Personal history of Methicillin resistant Staphylococcus aureus infection
CPT/HCPCS: 27130; 97116 ×2; 97162; 97166; 64999; 85025 ×2; 73501; C1776; J2250; J3370; J1100; J0690 ×2; J2405; J3490; J1885

== ENCOUNTER 2024-07-18 12:59 | Inpatient (IN) | payer BC ==
--- NOTE | 2024-07-18 14:16 | ED ---
Recheck HPI - General Source: patient, RN notes reviewed Mode of arrival: ambulatory Limitations: no limitations <BettyAniceto noel - Last Filed: 07/18/24 14:14> - General Source: patient, RN notes reviewed, old records reviewed Mode of arrival: ambulatory Limitations: no limitations - History of Present Illness MD Complaint: wound re-check -: days(s) Returns Today for: needs IV antibiotics Symptoms Since Prior Visit: no new symptoms Context: planned re-check Associated Symptoms: none Treatments Prior to Arrival: other (0) <Waldemar Bey - Last Filed: 07/24/24 17:26> - General Chief Complaint: Recheck/Abnormal Lab/Rx Stated Complaint: Incision opened-Post OP Time Seen by Provider: 07/18/24 13:16 - History of Present Illness Initial Comments: Quick note: This is a 58-year-old female presenting for open surgical incision since 07/13/2024. Patient endorses having right hip surgery performed on 06/23/[address] Calderón with no issues until her surgical site began opening last . Patient states she called Dr. Calderón's office and advised by Javon to go to ER for admission, initiation of IV antibiotics and suturing by Dr. Calderón tomorrow. Patient states the open incision sites about the size of a quarter right now with some clear discharge. (Aniceto Hernández) This is a 58 female sent to the ER by surgery, Dr. Calderón, orthopedic surgery who she just recently had right hip replacement. Patient's incision site is open with drainage and concern for infection (Waldemar Bey) - Related Data Home Medications Medication Instructions Recorded Confirmed Cyanocobalamin [Vitamin B-12] 500 mcg PO DAILY 10/02/14 07/18/24 Levothyroxine Sodium [Synthroid] 75 mcg PO DAILY 10/02/14 07/18/24 metOLazone [Zaroxolyn] 2.5 mg PO MOWEFR 10/09/14 07/18/24 Cholecalciferol [Vitamin D3 (25 1 tab PO DAILY 02/19/15 07/18/24 Mcg = 1000 Iu)] Doxycycline Hyclate 100 mg PO BID 03/26/15 07/18/24 ARIPiprazole [Abilify] 20 mg PO DAILY 06/20/24 07/18/24 Benztropine Mesylate 1 mg PO BID 06/20/24 07/18/24 OXcarbazepine [Trileptal] 300 mg PO BID 06/20/24 07/18/24 Propranolol HCl 80 mg PO DAILY 06/20/24 07/18/24 Spironolactone 50 mg PO DAILY 06/20/24 07/18/24 Acetaminophen Tab [Tylenol] 1,000 mg PO Q6HR PRN 06/23/24 07/18/24 Previous Rx's Medication Instructions Recorded Rivaroxaban [Xarelto] 10 mg PO DAILY #35 tab 06/26/24 cefuroxime axetiL [Ceftin] 500 mg PO BID #28 tab 07/23/24 cefuroxime axetiL [Ceftin] 500 mg PO BID #28 tab 07/23/24 Allergies Allergy/AdvReac Type Severity Reaction Status Date / Time No Known Allergies Allergy Verified 07/18/24 17:49 Review of Systems ROS Other: All systems not noted in ROS Statement are negative. <Aniceto Hernández - Last Filed: 07/18/24 14:14> ROS Other: All systems not noted in ROS Statement are negative. <Waldemar Bey - Last Filed: 07/24/24 17:26> ROS Statement: Those systems with pertinent positive or pertinent negative responses have been documented in the HPI. Past Medical History Past Medical History: Deep Vein Thrombosis (DVT), Thyroid Disorder Additional Past Medical History / Comment(s): pt unable to confirm if had dvt while at rehab at [facility] History of Any Multi-Drug Resistant Organisms: MRSA Date of last positivie culture/infection: 09/19/14 MDRO Source:: lt knee Past Surgical History: Adenoidectomy, Tonsillectomy Additional Past Surgical History / Comment(s): bilateral leg and lt arm surgery with screws and pins Past Anesthesia/Blood Transfusion Reactions: No Reported Reaction Additional Past Anesthesia/Blood Transfusion Reaction / Comment(s): no blood tx hx Past Psychological History: Depression Smoking Status: Former smoker Past Alcohol Use History: Occasional Past Drug Use History: None Reported - Past Family History Father Family Medical History: Cancer Additional Family Medical History / Comment(s): prostate cancer Mother Family Medical History: No Reported History <Aniceto Hernández - Last Filed: 07/18/24 14:14> General Exam Limitations: no limitations <Aniceto Hernández - Last Filed: 07/18/24 14:14> General appearance: alert, in no apparent distress Head exam: Present: atraumatic, normocephalic, normal inspection Eye exam: Present: normal appearance, PERRL, EOMI. Absent: scleral icterus, conjunctival injection, periorbital swelling ENT exam: Present: normal exam, mucous membranes moist Neck exam: Present: normal inspection. Absent: tenderness, meningismus, lymphadenopathy Respiratory exam: Present: normal lung sounds bilaterally. Absent: respiratory distress, wheezes, rales, rhonchi, stridor Cardiovascular Exam: Present: regular rate, normal rhythm, normal heart sounds. Absent: systolic murmur, diastolic murmur, rubs, gallop, clicks GI/Abdominal exam: Present: soft, normal bowel sounds. Absent: distended, tenderness, guarding, rebound, rigid Extremities exam: Present: normal inspection, full ROM, normal capillary refill. Absent: tenderness, pedal edema, joint swelling, calf tenderness Back exam: Present: normal inspection Neurological exam: Present: alert, oriented X3, CN II-XII intact Psychiatric exam: Present: normal affect, normal mood Skin exam: Present: warm, dry, intact, normal color. Absent: rash <Waldemar Bey - Last Filed: 07/24/24 17:26> - General Exam Comments Initial Comments: Visual Physical Exam Vital signs reviewed General: Well-appearing, nontoxic, no acute distress. Head: Normocephalic, atraumatic Eyes: PERRLA, EOMI ENT: Airway patent Chest: Nonlabored breathing Skin: No visual rash, normal skin tone Neuro: Alert and oriented 3 Musculoskeletal: No gross abnormalities (Aniceto Hernández) Incision here is open with clear drainage, no surrounding cellulitis no pain (Waldemar Bey) Course <Waldemar Bey - Last Filed: 07/24/24 17:26> Vital Signs 07/18/24 07/18/24 07/18/24 13:14 17:34 19:04 Temperature 98.9 F Pulse Rate 95 81 72 Pulse Rate [ Pulse Oximetery ] Respiratory 18 18 20 Rate Blood Pressure 153/99 124/87 121/95 Blood Pressure [Left Arm] O2 Sat by Pulse 96 99 99 Oximetry 07/18/24 07/18/24 19:57 20:00 Temperature 98.2 F 97.7 F Pulse Rate 88 Pulse Rate [ 85 Pulse Oximetery ] Respiratory 16 20 Rate Blood Pressure 121/58 Blood Pressure 123/77 [Left Arm] O2 Sat by Pulse 100 99 Oximetry - Reevaluation(s) Reevaluation #1: 07/18/24 16:37 Medical records reviewed Prior surgical records reviewed (Waldemar Bey) Reevaluation #2: 07/18/24 16:37 Patient has no complaints no fevers no pain (Waldemar Bey) Reevaluation #3: 07/18/24 16:37 Patient informed of results questions answered (Waldemar Bey) Reevaluation #4: Was pt. sent in by a medical professional or institution (, HORACIO, NURSING ADMINISTRATOR, urgent care, hospital, or correction...) When possible be specific @ -no Did you speak to anyone other than the patient for history (EMS, parent, family, police, friend...)? What history was obtained from this source @ -no Did you review nursing and triage notes (agree or disagree)? Why? @ -agree Are old charts reviewed (outside hosp., previous admission, EMS record, old EKG, old radiological studies, urgent care reports/EKG's, correction records)? Report findings @ -yes Differential Diagnosis (chest pain, altered mental status, abdominal pain women, abdominal pain men, vaginal bleeding, weakness, fever, dyspnea, syncope, headache, dizziness, GI bleed, back pain, seizure, CVA, palpatations, mental health, musculoskeletal)? @ -prior EKG interpreted by me (3pts min.). @ -no X-rays interpreted by me (1pt min.). @ -no CT interpreted by me (1pt min.). @ -no U/S interpreted by me (1pt. min.). @ -no What testing was considered but not performed or refused? (CT, X-rays, U/S, labs )? Why? @ -none What meds were considered but not given or refused? Why? @ -none Did you discuss the management of the patient with other professionals (professionals i.e. Dr., PA, NURSING ADMINISTRATOR, lab, RT, psych nurse, psychiatric social worker, resource agent, teacher, tactical intelligence officer, caser in)? Give summary @ -no Was smoking cessation discussed for >3mins.? @ -no Was critical care preformed (if so, how long)? @ -no Were there social determinants of health that impacted care today? How? (Homelessness, low income, unemployed, alcoholism, drug addiction, transportation, low edu. Level, literacy, decrease access to med. care, senior care, rehab)? @ -none Was there de-escalation of care discussed even if they declined (Discuss DNR or withdrawal of care, Hospice)? DNR status @ -no What co-morbidities impacted this encounter? (DM, HTN, Smoking, COPD, CAD, Cancer, CVA, ARF, Chemo, Hep., AIDS, mental health diagnosis, sleep apnea, morbid obesity)? @ -none Was patient admitted / discharged? Hospital course, mention meds given and route, prescriptions, significant lab abnormalities, going to OR and other pertinent info. @ - 58 female to be admitted for surgery in regards to wound dehiscence, incision dehiscence and concern for infection Admitted Undiagnosed new problem with uncertain prognosis? @ -no Drug Therapy requiring intensive monitoring for toxicity (Heparin, Nitro, Insulin, Cardizem)? @ -no Were any procedures done? @ -no Diagnosis/symptom? @ -Postoperative infection Acute, or Chronic, or Acute on Chronic? @ -Acute Uncomplicated (without systemic symptoms) or Complicated (systemic symptoms)? @ -Complicated Side effects of treatment? @ -no Exacerbation, Progression, or Severe Exacerbation? @ -exacerbation Poses a threat to life or bodily function? How? (Chest pain, [place], AL, pneumonia, PE, COPD, DKA, ARF, appy, cholecystitis, CVA, Diverticulitis, Homicidal, Suicidal, threat to staff... and all critical care pts) @ -yes postoperative changes (Waldemar Bey) - Consultations Consultation #1: Spoke with Dr. Pringle for Dr. Calderón, patient will be excepted as an admission observation (Waldemar Bey) Medical Decision Making <Aniceto Hernández - Last Filed: 07/18/24 14:14> - Lab Data Result diagrams: 07/22/24 05:55 07/23/24 05:12 <Waldemar Bey - Last Filed: 07/24/24 17:26> - Medical Decision Making I completed the quick note portion of this chart signed HERO Dia (Aniceto Hernández) 58 female to be admitted for surgery in regards to wound dehiscence, incision dehiscence and concern for infection (Waldemar Bey) - Lab Data Lab Results 07/18/24 07/18/24 07/18/24 Range/Units 16:34 16:34 16:34 WBC 8.3 (3.8-10.6) k/uL RBC 4.31 (3.80-5.40) m/uL Hgb 12.1 (11.4-16.0) gm/dL Hct 38.0 (34.0-46.0) % MCV 88.1 (80.0-100.0) fL MCH 28.0 (25.0-35.0) pg MCHC 31.8 (31.0-37.0) g/dL RDW 14.3 (11.5-15.5) % Plt Count 290 (150-450) k/uL MPV 8.7 Neutrophils % 66 % Lymphocytes % 25 % Monocytes % 5 % Eosinophils % 2 % Basophils % 0 % Neutrophils # 5.5 (1.3-7.7) k/uL Lymphocytes # 2.0 (1.0-4.8) k/uL Monocytes # 0.4 (0-1.0) k/uL Eosinophils # 0.2 (0-0.7) k/uL Basophils # 0.0 (0-0.2) k/uL Hypochromasia Slight Poikilocytosis Slight PT (10.0-12.5) sec INR (<1.2) APTT (22.0-30.0) sec Sodium 134 L (137-145) mmol/L Potassium 3.5 (3.5-5.1) mmol/L Chloride 97 L (98-107) mmol/L Carbon Dioxide 28 (22-30) mmol/L Anion Gap 9 mmol/L BUN 12 (7-17) mg/dL Creatinine 0.78 (0.52-1.04) mg/dL Est GFR (CKD-EPI)AfAm >90 (>60 ml/min/1.73 sqM) Est GFR (CKD-EPI)NonAf 84 (>60 ml/min/1.73 sqM) Glucose 108 H (74-99) mg/dL Plasma Lactic Acid Jack 0.9 (0.7-2.0) mmol/L Calcium 11.0 H (8.4-10.2) mg/dL Total Bilirubin 0.6 (0.2-1.3) mg/dL AST 36 (14-36) U/L ALT 19 (4-34) U/L Alkaline Phosphatase 134 H (38-126) U/L C-Reactive Protein (<1.0) mg/dL Total Protein 7.7 (6.3-8.2) g/dL Albumin 4.6 (3.5-5.0) g/dL 07/18/24 07/18/24 Range/Units 16:34 16:34 WBC (3.8-10.6) k/uL RBC (3.80-5.40) m/uL Hgb (11.4-16.0) gm/dL Hct (34.0-46.0) % MCV (80.0-100.0) fL MCH (25.0-35.0) pg MCHC (31.0-37.0) g/dL RDW (11.5-15.5) % Plt Count (150-450) k/uL MPV Neutrophils % % Lymphocytes % % Monocytes % % Eosinophils % % Basophils % % Neutrophils # (1.3-7.7) k/uL Lymphocytes # (1.0-4.8) k/uL Monocytes # (0-1.0) k/uL Eosinophils # (0-0.7) k/uL Basophils # (0-0.2) k/uL Hypochromasia Poikilocytosis PT 11.5 (10.0-12.5) sec INR 1.1 (<1.2) APTT 26.6 (22.0-30.0) sec Sodium (137-145) mmol/L Potassium (3.5-5.1) mmol/L Chloride (98-107) mmol/L Carbon Dioxide (22-30) mmol/L Anion Gap mmol/L BUN (7-17) mg/dL Creatinine (0.52-1.04) mg/dL Est GFR (CKD-EPI)AfAm (>60 ml/min/1.73 sqM) Est GFR (CKD-EPI)NonAf (>60 ml/min/1.73 sqM) Glucose (74-99) mg/dL Plasma Lactic Acid Jack (0.7-2.0) mmol/L Calcium (8.4-10.2) mg/dL Total Bilirubin (0.2-1.3) mg/dL AST (14-36) U/L ALT (4-34) U/L Alkaline Phosphatase (38-126) U/L C-Reactive Protein 2.4 H (<1.0) mg/dL Total Protein (6.3-8.2) g/dL Albumin (3.5-5.0) g/dL Disposition <Aniceto Hernández - Last Filed: 07/18/24 14:14> Is patient prescribed a controlled substance at d/c from ED?: No Time of Disposition: 16:00 <Waldemar Bey - Last Filed: 07/24/24 17:26> Clinical Impression: External incisional dehiscence, Cellulitis of right leg Disposition: ADMITTED IP TO THIS HOSP Condition: Good
[2024-07-18] MEDS ORDERED: VANCOMYCIN IV PER PHARMACY 1 EACH MISC MISCELLANE PRN (16:23)
[2024-07-18 17:09] LABS: ALT 19 U/L (4-34); AST 36 U/L (14-36); African American GFR (CKD) >90 (>60 ml/min/1.73 sqM); Albumin 4.6 g/dL (3.5-5.0); Alkaline Phosphatase 134 U/L (38-126); Anion Gap 9 mmol/L; Blood Urea Nitrogen 12 mg/dL (7-17); Carbon Dioxide 28 mmol/L (22-30); Chloride 97 mmol/L (98-107); Glucose 108 mg/dL (74-99); Non-African American GFR(CKD) 84 (>60 ml/min/1.73 sqM); Potassium 3.5 mmol/L (3.5-5.1); Sodium 134 mmol/L (137-145); Total Bilirubin 0.6 mg/dL (0.2-1.3); Total Protein 7.7 g/dL (6.3-8.2)
[2024-07-18 17:17] LABS: INR 1.1 (<1.2); Partial Thromboplastin Time 26.6 sec (22.0-30.0); Prothrombin Time 11.5 sec (10.0-12.5)
[2024-07-18 17:19] LABS: Basophils % (A) 0 %; Eosinophils # (A) 0.2 k/uL (0-0.7); Eosinophils % (A) 2 %; HGB 12.1 gm/dL (11.4-16.0); Hypochromasia Slight; Lymphocytes % (A) 25 %; MCHC 31.8 g/dL (31.0-37.0); MCV 88.1 fL (80.0-100.0); Mean Platelet Volume 8.7; Monocytes # (A) 0.4 k/uL (0-1.0); Monocytes % (A) 5 %; Neutrophils # (A) 5.5 k/uL (1.3-7.7); Neutrophils % (A) 66 %; Platelet Count 290 k/uL (150-450); Poikilocytosis Slight; RBC 4.31 m/uL (3.80-5.40); RDW 14.3 % (11.5-15.5); WBC 8.3 k/uL (3.8-10.6)
[2024-07-18] MEDS ORDERED: NALOXONE 0.4 MG/ML 1 ML VIAL IV PRN (17:26)
[2024-07-18] MEDS ORDERED: ONDANSETRON 4 MG/2 ML VIAL IVP PRN (17:26)
[2024-07-18] MEDS ORDERED: MORPHINE SULFATE 4 MG/ML SYRINGE IV PRN (17:26)
[2024-07-18] MEDS: SODIUM CHLORIDE 0.9% 1,000 ML IV SCH (17:35)
[2024-07-18] MEDS: VANCOMYCIN 1,750 MG in SODIUM CHLORIDE 0.9% 500 ML 500 ML IVPB STA (19:09)
[2024-07-19 04:13] LABS: African American GFR (CKD) >90 (>60 ml/min/1.73 sqM); Anion Gap 9 mmol/L; Blood Urea Nitrogen 13 mg/dL (7-17); Calcium 10.2 mg/dL (8.4-10.2); Carbon Dioxide 25 mmol/L (22-30); Chloride 100 mmol/L (98-107); Glucose 108 mg/dL (74-99); Non-African American GFR(CKD) >90 (>60 ml/min/1.73 sqM); Potassium 4.1 mmol/L (3.5-5.1); Sodium 134 mmol/L (137-145)
[2024-07-19] MEDS: VANCOMYCIN 1,750 MG in SODIUM CHLORIDE 0.9% 500 ML 500 ML IVPB SCH (05:31)
--- NOTE | 2024-07-19 08:09 | P.HPOR ---
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 Calderón. At the patient's 2-week postop visit their incision had been healing well with no signs of infection or dehiscence. Patient is unsure of the exact time but sometime last week the incision started to have some wound dehiscence in the midportion and collection of purulent material in the incision. The patient presented to our office [facility] on 07/18/2024 and was directed to [facility] emergency department for admittance for IV antibiotics and potential operative exploration and irrigation with revision closure. Patient states their pain in the right hip has resolved since surgery. Patient has been able to ambulate up and down stairs and only uses a cane as a ssistive device sometimes. Patient states they continue to be pain-free in the right hip. Patient denies fever, chills, shortness of breath, or chest pain. Past Medical History Past Medical History: Deep Vein Thrombosis (DVT), Thyroid Disorder Additional Past Medical History / Comment(s): pt unable to confirm if had dvt while at rehab at [facility] History of Any Multi-Drug Resistant Organisms: MRSA Date of last positivie culture/infection: 09/19/14 MDRO Source:: lt knee Past Surgical History: Adenoidectomy, Tonsillectomy Additional Past Surgical History / Comment(s): bilateral leg and lt arm surgery with screws and pins Past Anesthesia/Blood Transfusion Reactions: No Reported Reaction Additional Past Anesthesia/Blood Transfusion Reaction / Comment(s): no blood tx hx Past Psychological History: Depression Additional Psychological History / Comment(s): The patient is . Lives with her parents. Does not have a history of significant alcohol or recreational drug use It is noted he has the extensive psychiatric history. 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 Smoking Status: Former smoker Past Alcohol Use History: Occasional Past Drug Use History: None Reported - Past Family History Father Family Medical History: Cancer Additional Family Medical History / Comment(s): prostate cancer Mother Family Medical History: No Reported History Medications and Allergies Home Medications Medication Instructions Recorded Confirmed Type Cyanocobalamin [Vitamin B-12] 500 mcg PO DAILY 10/02/14 07/18/24 History Levothyroxine Sodium [Synthroid] 75 mcg PO DAILY 10/02/14 07/18/24 History metOLazone [Zaroxolyn] 2.5 mg PO MOWEFR 10/09/14 07/18/24 History Cholecalciferol [Vitamin D3 (25 1 tab PO DAILY 02/19/15 07/18/24 History Mcg = 1000 Iu)] Doxycycline Hyclate 100 mg PO BID 03/26/15 07/18/24 History ARIPiprazole [Abilify] 20 mg PO DAILY 06/20/24 07/18/24 History Benztropine Mesylate 1 mg PO BID 06/20/24 07/18/24 History OXcarbazepine [Trileptal] 300 mg PO BID 06/20/24 07/18/24 History Propranolol HCl 80 mg PO DAILY 06/20/24 07/18/24 History Spironolactone 50 mg PO DAILY 06/20/24 07/18/24 History Acetaminophen Tab [Tylenol] 1,000 mg PO Q6HR PRN 06/23/24 07/18/24 History Rivaroxaban [Xarelto] 10 mg PO DAILY #35 tab 06/26/24 07/18/24 Rx Allergies Allergy/AdvReac Type Severity Reaction Status Date / Time No Known Allergies Allergy Verified 07/18/24 17:49 Physical Examination Patient was examined at bedside. Patient is resting comfortably in chair. No apparent distress. They are awake, alert and able to answer questions. Patient remains pain-free with passive range of motion of the right hip. Incision shows midportion wound dehiscence. Mild amount of surrounding erythema. Results - Labs Labs: Abnormal Lab Results - Last 24 Hours (Table) 07/18/24 07/18/24 07/19/24 Range/Units 16:34 16:34 03:39 Sodium 134 L 134 L (137-145) mmol/L Chloride 97 L (98-107) mmol/L Glucose 108 H 108 H (74-99) mg/dL Calcium 11.0 H (8.4-10.2) mg/dL Alkaline Phosphatase 134 H (38-126) U/L C-Reactive Protein 2.4 H (<1.0) mg/dL H & H 07/18/24 Range/Units 16:34 Hgb 12.1 (11.4-16.0) gm/dL Hct 38.0 (34.0-46.0) % Coagulation 07/18/24 Range/Units 16:34 INR 1.1 (<1.2) Result Diagrams: 07/18/24 16:34 07/19/24 03:39 Assessment and Plan Assessment: Superficial wound breakdown Status post right total hip arthroplasty on 06/23/2024 for severe right hip osteoarthritis Plan: Remain NPO. Patient has a history of surgical incision wound infection with MRSA several years ago. We discussed superficial wound breakdown and potential treatment options. Potential treatment options include dressing changes and wound care versus exploration and irrigation in the operating room. Patient has elected to proceed with exploration and irrigation and operating room. We anticipate taking the patient to the OR this afternoon. We appreciate internal medicine and infectious disease for medical management.
[2024-07-19] MEDS: PROPRANOLOL 40 MG TAB PO SCH (08:23)
[2024-07-19] MEDS: BENZTROPINE MESYLATE 1 MG TAB PO SCH (08:23)
[2024-07-19] MEDS: CYANOCOBALAMIN 500 MCG TAB PO SCH (08:23)
[2024-07-19] MEDS: PANTOPRAZOLE 40 MG/10 ML VIAL IV SCH (08:24)
[2024-07-19] MEDS: CHOLECALCIFEROL 25 MCG (1000 IU) TABLET PO SCH (08:24)
[2024-07-19] MEDS: OXcarbazepine 300 MG TAB PO SCH (08:24)
[2024-07-19] MEDS: LEVOTHYROXINE 75 MCG TAB PO SCH (08:35)
[2024-07-19] MEDS: LACTATED RINGERS 1,000 ML IV ONE (12:53)
[2024-07-19] MEDS ORDERED: fentaNYL (PF) 50 MCG/ML 2 ML AMP ONE (13:38)
[2024-07-19] MEDS ORDERED: LIDOCAINE 1% INJ 10MG/ML (20 ML MDV) ONE (13:38)
[2024-07-19] MEDS ORDERED: ROCURONIUM 10 MG/ML (5 ML VIAL) IV ONE (13:38)
[2024-07-19] MEDS ORDERED: MIDAZOLAM 2 MG/2 ML VIAL ONE (13:38)
[2024-07-19] MEDS ORDERED: GLYCOPYRROLATE 0.2 MG/ML 2 ML VIAL ONE (13:38)
[2024-07-19] MEDS: SODIUM CHLORIDE 0.9% 50 ML with ceFAZolin 2,000 MG IV ONE (13:38)
[2024-07-19] MEDS ORDERED: NEOSTIGMINE 1 MG/ML 10 ML VIAL ONE (13:38)
[2024-07-19] MEDS ORDERED: PHENYLEPHRINE 10 MG/ML VIAL ONE (13:38)
[2024-07-19] MEDS ORDERED: PROPOFOL 10 MG/ML 20 ML VIAL IV ONE (13:38)
[2024-07-19] MEDS ORDERED: SUCCINYLCHOLINE CHLORIDE 200 MG/10 ML VIAL IV ONE (13:38)
[2024-07-19] MEDS: VANCOMYCIN 1,000 MG VIAL MISCELLANE ONE (14:27)
[2024-07-19] MEDS ORDERED: HYDROmorphone 1 MG/ML 1 ML SYRINGE IVP PRN (15:00)
[2024-07-19] MEDS ORDERED: HYDROmorphone 0.5 MG/0.5 ML SYRINGE IVP PRN ×2 (15:00)
[2024-07-19] MEDS ORDERED: HYDROcodone/APAP 10-325MG 1 EACH TAB PO PRN (15:00)
[2024-07-19] MEDS ORDERED: HYDROcodone/APAP 5-325MG 1 EACH TAB PO PRN (15:00)
[2024-07-19] MEDS ORDERED: NALOXONE 0.4 MG/ML 1 ML VIAL IV PRN (15:00)
[2024-07-19] MEDS ORDERED: traMADol 50 MG TAB PO PRN (15:00)
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
[2024-07-19] MEDS: SODIUM CHLORIDE 0.9% 1,000 ML IV SCH (17:04)
[2024-07-19] MEDS: ASPIRIN 81 MG PO SCH (22:07)
[2024-07-19] MEDS: SENNOSIDES-DOCUSATE SODIUM 1 EACH TAB PO SCH (22:07)
--- NOTE | 2024-07-19 23:20 | P.CONS ---
History of Present Illness - Reason for Consult Consult date: 07/19/24 Total right hip incisional and drainage Requesting physician: Rajni Garcia - Chief Complaint Right hip incision wound and drainage x days - History of Present Illness Patient is a 58-year-old female with a past medical history significant for DVT hypothyroidism depression, Left leg infection just below the knee in this patient who did have underlying hardware for previous left tibial fracture and did have a history of MRSA infection patient opted for lifelong suppressive antibiotic therapy instead of removal of the hardware as there was concern for more complication associated with it patient seem to be tolerating her oral doxycycline, recent did have right total hip arthroplasty on 06/23/2024 2-week postop visit patient incision was healing well however subsequently patient noticed to have dehiscence of the adhesion in the midportion and did have some purulent drainage patient has been evaluated by orthopedics on 07/18/2024 and has been advised to go to the hospital for IV new medical surgical exploration patient denies any high-grade fever or chills has been complaining of pain to the right hip incision mostly dull aching mild to moderate days without radiation did have some drainage with associated swelling patient presented to the hospital was afebrile and no fever have recorded subsequently patient was not tachycardic hypotensive or hypoxic patient did have a white count of 8.3 creatinine 0.78 electrolyte has been normal liver enzymes are normal CRP is 2.4 patient has been taking the lower and the patient is status post debridement of the right hip wound and closure and placement of the wound VAC operative report mention superficial infection and not tracking down to the artificial right hip culture have been obtained patient is received cefazolin perioperatively infectious disease was consulted for further management of anti biotic therapy Review of Systems Positive point and negatives has been mentioned in the HPI, complete review of systems was performed and all other systems are negative Past Medical History Past Medical History: Deep Vein Thrombosis (DVT), Thyroid Disorder Additional Past Medical History / Comment(s): pt unable to confirm if had dvt while at rehab at [facility] History of Any Multi-Drug Resistant Organisms: MRSA Year Discovered:: 09/19/14 MDRO Source:: lt knee Past Surgical History: Adenoidectomy, Tonsillectomy Additional Past Surgical History / Comment(s): bilateral leg and lt arm surgery with screws and pins Past Anesthesia/Blood Transfusion Reactions: No Reported Reaction Additional Past Anesthesia/Blood Transfusion Reaction / Comm: no blood tx hx Past Psychological History: Depression Additional Psychological History / Comment(s): The patient is . Lives with her parents. Does not have a history of significant alcohol or recreational drug use It is noted he has the extensive psychiatric history. 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 Smoking Status: Former smoker Past Alcohol Use History: Occasional Past Drug Use History: None Reported - Past Family History Father Family Medical History: Cancer Additional Family Medical History / Comment(s): prostate cancer Mother Family Medical History: No Reported History Medications and Allergies Home Medications Medication Instructions Recorded Confirmed Type Cyanocobalamin [Vitamin B-12] 500 mcg PO DAILY 10/02/14 07/18/24 History Levothyroxine Sodium [Synthroid] 75 mcg PO DAILY 10/02/14 07/18/24 History metOLazone [Zaroxolyn] 2.5 mg PO MOWEFR 10/09/14 07/18/24 History Cholecalciferol [Vitamin D3 (25 1 tab PO DAILY 02/19/15 07/18/24 History Mcg = 1000 Iu)] Doxycycline Hyclate 100 mg PO BID 03/26/15 07/18/24 History ARIPiprazole [Abilify] 20 mg PO DAILY 06/20/24 07/18/24 History Benztropine Mesylate 1 mg PO BID 06/20/24 07/18/24 History OXcarbazepine [Trileptal] 300 mg PO BID 06/20/24 07/18/24 History Propranolol HCl 80 mg PO DAILY 06/20/24 07/18/24 History Spironolactone 50 mg PO DAILY 06/20/24 07/18/24 History Acetaminophen Tab [Tylenol] 1,000 mg PO Q6HR PRN 06/23/24 07/18/24 History Rivaroxaban [Xarelto] 10 mg PO DAILY #35 tab 06/26/24 07/18/24 Rx Allergies Allergy/AdvReac Type Severity Reaction Status Date / Time No Known Allergies Allergy Verified 07/18/24 17:49 Physical Exam Vitals: Vital Signs Temp Pulse Pulse Resp BP BP Pulse Ox 07/19/24 09:27 16 07/19/24 07:57 98.1 F 74 18 116/78 97 07/19/24 01:17 97.7 F 91 20 107/63 95 07/18/24 23:49 85 20 07/18/24 20:00 97.7 F 85 20 123/77 99 07/18/24 19:57 98.2 F 88 16 121/58 100 07/18/24 19:04 72 20 121/95 99 07/18/24 17:34 81 18 124/87 99 07/18/24 13:14 98.9 F 95 18 153/99 96 Intake and Output 07/18/24 07/19/24 07/19/24 22:59 06:59 14:59 Other: # Voids 2 2 Weight 117.934 kg GENERAL DESCRIPTION: Middle-age female lying in bed, no distress. No tachypnea or accessory muscle of respiration use. HEENT: Shows Pallor , no scleral icterus. Oral mucous membrane is dry. No pharyngeal erythema or thrush NECK: Trachea central, no thyromegaly. LUNGS: Unlabored breathing. Clear to auscultation anteriorly. No wheeze or crackle. HEART: S1, S2, regular rate and rhythm. No loud murmur ABDOMEN: Soft, no tenderness , guarding or rigidity, no organomegaly EXTREMITIES: Right anterior hip incision dehiscence with some slough tissue surrounding swelling no foul-smelling drainage SKIN: No rash, no masses palpable. NEUROLOGICAL: The patient is awake, alert, oriented x3, mood and affect normal. Results CBC & Chem 7: 07/18/24 16:34 07/19/24 03:39 Labs: Abnormal Lab Results - Last 24 Hours (Table) 07/18/24 07/18/24 07/19/24 Range/Units 16:34 16:34 03:39 Sodium 134 L 134 L (137-145) mmol/L Chloride 97 L (98-107) mmol/L Glucose 108 H 108 H (74-99) mg/dL Calcium 11.0 H (8.4-10.2) mg/dL Alkaline Phosphatase 134 H (38-126) U/L C-Reactive Protein 2.4 H (<1.0) mg/dL Assessment and Plan (1) Cellulitis of right leg Current Visit: Yes Status: Acute Code(s): L03.115 - CELLULITIS OF RIGHT LOWER LIMB SNOMED Code(s): 89377091354626030 (2) External incisional dehiscence Current Visit: Yes Status: Acute Code(s): T81.31XA - DISRUPTION OF EXTERNAL OPERATION (SURGICAL) WOUND, NEC, INIT SNOMED Code(s): 871192715620648 Plan: 1patient with the right hip surgical site superficial necrosis and infection in this patient who is status post surgical debridement will need to cover for resistant gram-positive as well as gram-negative pathogen 2-local as well as blood culture has been obtained results will be followed 3-patient to be empirically treated with cefepime and vancomycin while waiting for the culture to finalize We will follow on clinical condition and cultures to further adjust medication if needed Thank you for this consultation we will follow the patient along with you Dictation was produced using [employer] dictation software. please excuse any grammatical, word or spelling errors. Time with Patient: Greater than 30
[2024-07-20] MEDS: CEFEPIME 2 GM in SODIUM CHLORIDE 0.9% 100 ML IVPB SCH (00:14)
[2024-07-20] MEDS: ACETAMINOPHEN TAB 325 MG TAB PO PRN (06:20)
[2024-07-20 06:58] LABS: ALT 13 U/L (4-34); AST 18 U/L (14-36); African American GFR (CKD) >90 (>60 ml/min/1.73 sqM); Albumin 3.4 g/dL (3.5-5.0); Albumin/Globulin Ratio 1.5; Alkaline Phosphatase 108 U/L (38-126); Anion Gap 7 mmol/L; Blood Urea Nitrogen 11 mg/dL (7-17); Calcium 9.8 mg/dL (8.4-10.2); Carbon Dioxide 23 mmol/L (22-30); Chloride 100 mmol/L (98-107); Globulin 2.3 g/dL; Glucose 103 mg/dL (74-99); Magnesium 1.8 mg/dL (1.6-2.3); Non-African American GFR(CKD) >90 (>60 ml/min/1.73 sqM); Potassium 4.1 mmol/L (3.5-5.1); Sodium 130 mmol/L (137-145); Total Bilirubin 0.5 mg/dL (0.2-1.3); Total Protein 5.7 g/dL (6.3-8.2)
--- NOTE | 2024-07-20 08:09 | P.PN ---
Subjective Progress Note Date: 07/20/24 No acute events overnight. Patient is doing well this morning. They deny pain in their hip. They have walked to the bathroom. They deny chest pain or shortness of breath. Objective - Vital Signs Vital signs: Vital Signs Temp 98.3 F 07/20/24 07:11 Pulse 97 07/20/24 07:11 Resp 17 07/20/24 07:11 BP 124/82 07/20/24 07:11 Pulse Ox 94 L 07/20/24 07:11 FiO2 Intake & Output 07/19/24 07/20/24 07/20/24 18:59 06:59 18:59 Intake Total 775 760 Output Total 25 Balance 750 760 Intake: IV 775 Oral 760 Output: Estimated Blood Loss 25 Other: Voiding Method Toilet # Voids 2 3 - Exam Patient was examined at bedside. Patient is resting comfortably in a chair. No apparent distress. They are awake, alert and able to answer questions. Inspection: There is a surgical wound VAC over the right hip. Neurovascular: Operative femoral nerve function is intact. The patient is able to actively plantarflex and dorsiflex their operative ankle and toes. - Labs CBC & Chem 7: 07/18/24 16:34 07/20/24 06:09 Labs: Abnormal Lab Results - Last 24 Hours (Table) 07/20/24 Range/Units 06:09 Sodium 130 L (137-145) mmol/L Glucose 103 H (74-99) mg/dL Total Protein 5.7 L (6.3-8.2) g/dL Albumin 3.4 L (3.5-5.0) g/dL Microbiology - Last 24 Hours (Table) 07/18/24 16:30 Blood Culture Gram Stain - Preliminary Blood Blood Culture - Preliminary Molecular ID Assessment and Plan Assessment: External incisional dehiscence Status post right total hip arthroplasty on 06/23/2024 for severe right hip osteoarthritis Plan: Patient doing very well after procedure. Concern for nutritional deficiency as the cause of the wound breakdown, a consult has been placed to a dietitian for evaluation and treatment. Cultures are pending. When antibiotic recommendations have been made, patient is cleared to discharge home from an orthopedic standpoint. We appreciate internal medicine and infectious disease involvement in the care of the patient.
[2024-07-20 08:47] LABS: Basophils # (A) 0.04 X 10*3/uL (0.00-0.10); Basophils % (A) 0.4 %; Eosinophils # (A) 0.27 X 10*3/uL (0.04-0.35); Eosinophils % (A) 2.9 %; HCT 32.1 % (37.2-46.3); HGB 9.9 g/dL (12.0-15.0); Lymphocytes # (A) 1.34 X 10*3/uL (0.90-5.00); Lymphocytes % (A) 14.6 %; MCHC 30.8 g/dL (32.0-37.0); MCV 90.9 FL (80.0-97.0); Mean Platelet Volume 10.9 FL (9.5-12.2); Monocytes % (A) 9.8 %; NRBC Per 100 WBC 0 X 10*3/uL (0.00-0.01); Neutrophils # (A) 6.59 X 10*3/uL (1.80-7.70); Neutrophils % (A) 71.9 %; Platelet Count 241 X 10*3/uL (140-440); RBC 3.53 X 10*6/uL (4.10-5.20); RDW 14.4 % (11.5-14.5); WBC 9.18 X 10*3/uL (4.50-10.00)
--- NOTE | 2024-07-20 09:12 | P.CONS ---
History of Present Illness - Reason for Consult Consult date: 07/19/24 Medical management, incisional infection of total right hip - History of Present Illness This is a very pleasant 58-year-old female who presented to the emergency department with concerns for recent right hip arthroplasty with concerns of dehiscence and drainage from the site. Patient admitted under orthopedics with infectious disease and general medicine on consult for management. Patient is status post right total hip arthroplasty on June 23, 2024 secondary to severe right hip osteoarthritis was reported to be doing well although patient noticed the incision site opening up and was sent in for further evaluation. Labs reviewed reveal a white count of 8.3, hemoglobin is stable at 12.1, platelets 290, sodium 134 with a potassium of 3.5, BUN 12 and creatinine is 0.78, CRP is mildly elevated at 2.4. Patient is scheduled to undergo surgical intervention in the OR and will await official report. Home medications reviewed and will be resumed as appropriate. Patient does follow with Dr. Espinoza in the outpatient setting and medicine was consulted for management. REVIEW OF SYSTEMS: CONSTITUTIONAL: No fever, no malaise, no fatigue. HEENT: No recent visual problems or hearing problems. Denied any sore throat. CARDIOVASCULAR: No chest pain, orthopnea, PND, no palpitations, no syncope. PULMONARY: No shortness of breath, no cough, no hemoptysis. GASTROINTESTINAL: No diarrhea, no nausea, no vomiting, no abdominal pain. NEUROLOGICAL: No headaches, no weakness, no numbness. HEMATOLOGICAL: Denies any bleeding or petechiae. GENITOURINARY: Denies any burning micturition, frequency, or urgency. MUSCULOSKELETAL/RHEUMATOLOGICAL: Denies any joint pain, swelling, or any muscle pain. Reports right hip surgical site is open ENDOCRINE: Denies any polyuria or polydipsia. The rest of the 14-point review of systems is negative. PHYSICAL EXAMINATION: GENERAL: The patient is alert and oriented x3, not in any acute distress. Well developed, well nourished. Morbidly obese HEENT: Pupils are round and equally reacting to light. EOMI. No scleral icterus. No conjunctival pallor. Normocephalic, atraumatic. No pharyngeal erythema. No thyromegaly. CARDIOVASCULAR: S1 and S2 present. No murmurs, rubs, or gallops. PULMONARY: Chest is clear to auscultation, no wheezing or crackles. ABDOMEN: Soft, nontender, nondistended, normoactive bowel sounds. No palpable organomegaly. MUSCULOSKELETAL: No joint swelling or deformity. EXTREMITIES: No cyanosis, clubbing, or pedal edema. Right hip surgical site is currently dressed with a dressing NEUROLOGICAL: Gross neurological examination did not reveal any focal deficits. SKIN: No rashes. Assessment: Recent right hip arthroplasty site dehiscence with drainage, concern for possible infection Recent right total hip arthroplasty June 23, 2024, elective History of DVT History of thyroid disorder History of depression Morbid obesity with a BMI of 43.3 GI prophylaxis DVT prophylaxis Full code Plan: Patient was admitted under orthopedic services scheduled to undergo surgical intervention today of the right hip to assess for possible deep cultures, washout and closure of the site Home medications reviewed and resumed as appropriate Recommend follow-up labs in the a.m. and monitor electrolytes. Replace electrolytes per protocol Patient currently n.p.o. as patient is scheduled to undergo surgery today which is currently pending Infectious disease consulted and patient is started on antibiotics and will obtain cultures, hopeful for deep cultures during surgery We will continue to follow with orthopedics during hospitalization. Thank you kindly for this consultation Recommend incentive spirometer use at least 10 times every hour while awake The impression and plan of care has been dictated by Rajni Garcia, Nurse Practitioner as directed. Dr. Villa MD I have performed a history and examination and MDM of this patient, discussed the same with the dictator, and agree with the dictator's assessment and plan as written ,documented as a scribe. Based on total visit time, I have performed more than 50% of the visit. Past Medical History Past Medical History: Deep Vein Thrombosis (DVT), Thyroid Disorder Additional Past Medical History / Comment(s): pt unable to confirm if had dvt while at rehab at [facility] History of Any Multi-Drug Resistant Organisms: MRSA Year Discovered:: 09/19/14 MDRO Source:: lt knee Past Surgical History: Adenoidectomy, Tonsillectomy Additional Past Surgical History / Comment(s): bilateral leg and lt arm surgery with screws and pins Past Anesthesia/Blood Transfusion Reactions: No Reported Reaction Additional Past Anesthesia/Blood Transfusion Reaction / Comm: no blood tx hx Past Psychological History: Depression Additional Psychological History / Comment(s): The patient is . Lives with her parents. Does not have a history of significant alcohol or recreat ional drug use It is noted he has the extensive psychiatric history. 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 Smoking Status: Former smoker Past Alcohol Use History: Occasional Past Drug Use History: None Reported - Past Family History Father Family Medical History: Cancer Additional Family Medical History / Comment(s): prostate cancer Mother Family Medical History: No Reported History Medications and Allergies Home Medications Medication Instructions Recorded Confirmed Type Cyanocobalamin [Vitamin B-12] 500 mcg PO DAILY 10/02/14 07/18/24 History Levothyroxine Sodium [Synthroid] 75 mcg PO DAILY 10/02/14 07/18/24 History metOLazone [Zaroxolyn] 2.5 mg PO MOWEFR 10/09/14 07/18/24 History Cholecalciferol [Vitamin D3 (25 1 tab PO DAILY 02/19/15 07/18/24 History Mcg = 1000 Iu)] Doxycycline Hyclate 100 mg PO BID 03/26/15 07/18/24 History ARIPiprazole [Abilify] 20 mg PO DAILY 06/20/24 07/18/24 History Benztropine Mesylate 1 mg PO BID 06/20/24 07/18/24 History OXcarbazepine [Trileptal] 300 mg PO BID 06/20/24 07/18/24 History Propranolol HCl 80 mg PO DAILY 06/20/24 07/18/24 History Spironolactone 50 mg PO DAILY 06/20/24 07/18/24 History Acetaminophen Tab [Tylenol] 1,000 mg PO Q6HR PRN 06/23/24 07/18/24 History Rivaroxaban [Xarelto] 10 mg PO DAILY #35 tab 06/26/24 07/18/24 Rx Allergies Allergy/AdvReac Type Severity Reaction Status Date / Time No Known Allergies Allergy Verified 07/18/24 17:49 Physical Exam Vitals: Vital Signs Temp Pulse Pulse Resp BP BP Pulse Ox 07/19/24 09:27 16 07/19/24 07:57 98.1 F 74 18 116/78 97 07/19/24 01:17 97.7 F 91 20 107/63 95 07/18/24 23:49 85 20 07/18/24 20:00 97.7 F 85 20 123/77 99 07/18/24 19:57 98.2 F 88 16 121/58 100 07/18/24 19:04 72 20 121/95 99 07/18/24 17:34 81 18 124/87 99 07/18/24 13:14 98.9 F 95 18 153/99 96 Intake and Output 07/18/24 07/19/24 07/19/24 22:59 06:59 14:59 Other: # Voids 2 2 Weight 117.934 kg Results CBC & Chem 7: 07/20/24 06:09 07/20/24 06:09 Labs: Abnormal Lab Results - Last 24 Hours (Table) 07/18/24 07/18/24 07/19/24 Range/Units 16:34 16:34 03:39 Sodium 134 L 134 L (137-145) mmol/L Chloride 97 L (98-107) mmol/L Glucose 108 H 108 H (74-99) mg/dL Calcium 11.0 H (8.4-10.2) mg/dL Alkaline Phosphatase 134 H (38-126) U/L C-Reactive Protein 2.4 H (<1.0) mg/dL
--- NOTE | 2024-07-20 13:55 | P.PN ---
Subjective Progress Note Date: 07/20/24 Principal diagnosis: Reason for follow-up is right hip surgical site infection and bacteremia Patient is a 58-year-old female with a past medical history significant for DVT hypothyroidism depression, Left leg infection with intact hardware on suppressive oral doxycycline admit to the hospital with right hip surgical site infection status post drainage operative report mentions superficial infection and not tracking below the fascia. On today's evaluation that is 07/20/2024,the patient remains to be afebrile, patient is on room air not requiring supplemental oxygen and denies any shortness of breath no chest pain or cough.Patient denies having any nausea or vomiting, no abdominal pain and no diarrhea, pain to the right hip site is currently controlled. Patient white count is 9.18 creatinine 0.70 blood culture with the staph epi Objective - Vital Signs Vital signs: Vital Signs Temp 98.3 F 07/20/24 07:11 Pulse 97 07/20/24 07:11 Resp 18 07/20/24 10:44 BP 124/82 07/20/24 07:11 Pulse Ox 94 L 07/20/24 07:11 FiO2 Intake & Output 07/19/24 07/20/24 07/20/24 18:59 06:59 18:59 Intake Total 775 760 Output Total 25 Balance 750 760 Intake: IV 775 Oral 760 Output: Estimated Blood Loss 25 Other: Voiding Method Toilet Toilet # Voids 2 3 - Exam Middle-age female up in the chair in no distress Unlabored breathing Awake alert oriented x 3 Right hip site is dressed - Labs CBC & Chem 7: 07/20/24 06:09 07/20/24 06:09 Labs: Abnormal Lab Results - Last 24 Hours (Table) 07/19/24 07/20/24 07/20/24 Range/Units 08:12 06:09 06:09 RBC 3.53 L (4.10-5.20) X 10*6/uL Hgb 9.9 L (12.0-15.0) g/dL Hct 32.1 L (37.2-46.3) % MCHC 30.8 L (32.0-37.0) g/dL Sodium 130 L (137-145) mmol/L Glucose 103 H (74-99) mg/dL Total Protein 5.7 L (6.3-8.2) g/dL Albumin 3.4 L (3.5-5.0) g/dL Oxcarbazepine 5.4 L (10-35) ug/mL Microbiology - Last 24 Hours (Table) 07/18/24 16:30 Blood Culture Gram Stain - Preliminary Blood Blood Culture - Preliminary Molecular ID Assessment and Plan (1) Cellulitis of right leg Current Visit: Yes Status: Acute Code(s): L03.115 - CELLULITIS OF RIGHT LOWER LIMB SNOMED Code(s): 61016309395660762 (2) External incisional dehiscence Current Visit: Yes Status: Acute Code(s): T81.31XA - DISRUPTION OF EXTERNAL OPERATION (SURGICAL) WOUND, NEC, INIT SNOMED Code(s): 645751060985196 (3) Bacteremia Current Visit: Yes Status: Acute Code(s): R78.81 - BACTEREMIA SNOMED Code(s): 1030733 Plan: 1patient with the right hip surgical site superficial necrosis and infection in this patient who is status post surgical debridement will need to cover for resistant gram-positive as well as gram-negative pathogen 2-local cultures currently pending blood culture showing staph epi with a que stion of possible skin contamination versus related to the right hip surgical site infection 3-blood culture has been repeated document clearance, however will wait for the culture to finalize we will discharge antibiotics and likely benefit from a short course of antibiotic therapy multiple question concern answered continue with the vancomycin and cefepime Dictation was produced using [employer] dictation software. please excuse any grammatical, word or spelling errors.
[2024-07-20 15:17] VITALS: BMI 43.2
[2024-07-21] MEDS: VANCOMYCIN TROUGH DUE 1 EACH MISC MISCELLANE ONE (06:04)
[2024-07-21 06:32] LABS: African American GFR (CKD) >90 (>60 ml/min/1.73 sqM); Anion Gap 7 mmol/L; Blood Urea Nitrogen 9 mg/dL (7-17); Calcium 10.1 mg/dL (8.4-10.2); Carbon Dioxide 24 mmol/L (22-30); Chloride 102 mmol/L (98-107); Glucose 104 mg/dL (74-99); Non-African American GFR(CKD) >90 (>60 ml/min/1.73 sqM); Potassium 4.4 mmol/L (3.5-5.1); Sodium 133 mmol/L (137-145)
--- NOTE | 2024-07-21 08:19 | P.PN ---
Subjective Progress Note Date: 07/21/24 No acute events overnight. Patient is doing well this morning. They deny pain in their hip. They have walked to the bathroom. They deny chest pain or shortness of breath. Blood cultures were drawn and are being repeated in the event of possible contamination. Objective - Vital Signs Vital signs: Vital Signs Temp 98.4 F 07/21/24 07:06 Pulse 83 07/21/24 07:06 Resp 15 07/21/24 07:06 BP 108/61 07/21/24 07:06 Pulse Ox 96 07/21/24 07:06 FiO2 Intake & Output 07/20/24 07/21/24 07/21/24 18:59 06:59 18:59 Intake Total 560 Balance 560 Weight 117.934 kg Intake: Oral 560 Other: Voiding Method Toilet Toilet # Voids 5 3 - Exam Patient was examined at bedside. Patient is resting comfortably in a chair. No apparent distress. They are awake, alert and able to answer questions. They deny any hip pain. Inspection: There is a surgical wound VAC over the right hip. Neurovascular: Operative femoral nerve function is intact. The patient is able to actively plantarflex and dorsiflex their operative ankle and toes. - Labs CBC & Chem 7: 07/20/24 06:09 07/21/24 05:43 Labs: Abnormal Lab Results - Last 24 Hours (Table) 07/19/24 07/20/24 07/21/24 Range/Units 08:12 06:09 05:43 RBC 3.53 L (4.10-5.20) X 10*6/uL Hgb 9.9 L (12.0-15.0) g/dL Hct 32.1 L (37.2-46.3) % MCHC 30.8 L (32.0-37.0) g/dL Sodium 133 L (137-145) mmol/L Glucose 104 H (74-99) mg/dL Oxcarbazepine 5.4 L (10-35) ug/mL Microbiology - Last 24 Hours (Table) 07/19/24 14:40 Gram Stain - Preliminary Hip - Right Wound Culture - Preliminary 07/19/24 14:45 Gram Stain - Preliminary Hip - Right Wound Culture - Preliminary 07/19/24 14:34 Gram Stain - Preliminary Hip - Right Wound Culture - Preliminary 07/18/24 16:30 Blood Culture Gram Stain - Preliminary Blood Blood Culture - Preliminary Molecular ID Assessment and Plan Assessment: External incisional dehiscence Status post right total hip arthroplasty on 06/23/2024 for severe right hip os teoarthritis Plan: On physical exam patient clinically appears to be doing very well. We appreciate internal medicine and infectious disease. Wound cultures preliminary report with no growth. Repeat blood cultures pending, we are waiting on antibiotic recommendations. Again we appreciate infectious disease with the management of this patient. Upon resolution of cultures and recommendations made for antibiotic therapy, patient is cleared to discharge from an orthopedic standpoint. Dictation was produced using [employer] dictation software. please excuse any grammatical, word or spelling errors.
--- NOTE | 2024-07-21 10:49 | P.PN ---
Subjective Progress Note Date: 07/20/24 - Reason for Consult Consult date: 07/19/24 Medical management, incisional infection of total right hip - History of Present Illness This is a very pleasant 58-year-old female who presented to the emergency department with concerns for recent right hip arthroplasty with concerns of dehiscence and drainage from the site. Patient admitted under orthopedics with infectious disease and general medicine on consult for management. Patient is status post right total hip arthroplasty on June 23, 2024 secondary to severe right hip osteoarthritis was reported to be doing well although patient noticed the incision site opening up and was sent in for further evaluation. Labs reviewed reveal a white count of 8.3, hemoglobin is stable at 12.1, platelets 290, sodium 134 with a potassium of 3.5, BUN 12 and creatinine is 0.78, CRP is mildly elevated at 2.4. Patient is scheduled to undergo surgical intervention in the OR and will await official report. Home medications reviewed and will be resumed as appropriate. Patient does follow with Dr. Espinoza in the outpatient setting and medicine was consulted for management. 07/20/2024 Patient is seen and evaluated in follow-up today with no acute overnight issues noted. Patient wants to leave although is awaiting finalized cultures to determine appropriate antibiotics per ID recommendations. Initial blood cultures are positive and will need to await for clearance of bacteremia and finalized cultures. Patient is afebrile with no reports of chest pain or shortness of breath. Patient has been tolerating diet with no reported nausea or vomiting. Patient is status post external incisional dehiscence repair and deep cultures. Deep cultures thus far are pending and initially negative. Review of systems: Constitutional: No reports of fatigue, fever, or chills Cardiovascular: No reports of chest pain or palpitations Respiratory: No reports of shortness of breath or cough GI: No reports of nausea, vomiting, or diarrhea : No reports of dysuria or retention Neurovascular: No reports of weakness or numbness All medications have been reviewed The rest of the 14-point review of systems is negative. PHYSICAL EXAMINATION: GENERAL: The patient is alert and oriented x3, not in any acute distress. Well developed, well nourished. Morbidly obese HEENT: Pupils are round and equally reacting to light. EOMI. No scleral icterus. No conjunctival pallor. Normocephalic, atraumatic. No pharyngeal erythema. No thyromegaly. CARDIOVASCULAR: S1 and S2 present. No murmurs, rubs, or gallops. PULMONARY: Chest is clear to auscultation, no wheezing or crackles. ABDOMEN: Soft, nontender, nondistended, normoactive bowel sounds. No palpable organomegaly. MUSCULOSKELETAL: No joint swelling or deformity. EXTREMITIES: No cyanosis, clubbing, or pedal edema. Right hip surgical site dressing is dry and intact NEUROLOGICAL: Gross neurological examination did not reveal any focal deficits. SKIN: No rashes. Assessment: Recent right hip arthroplasty site dehiscence with drainage, concern for possible infection, status post external incisional dehiscence repair with deep cultures obtained. Preliminary cultures are negative Positive blood cultures with gram-positive cocci in clusters, concern for possible contaminant awaiting repeat cultures Recent right total hip arthroplasty June 23, 2024, elective History of DVT History of thyroid disorder History of depression Morbid obesity with a BMI of 43.3 GI prophylaxis DVT prophylaxis Full code Plan: Patient was admitted under orthopedic services scheduled to undergo surgical intervention today of the right hip to assess for possible deep cultures, washout and closure of the site Home medications reviewed and resumed as appropriate Recommend follow-up labs in the a.m. and monitor electrolytes. Replace electro lytes per protocol Infectious disease following and maintained on antibiotics awaiting finalized cultures to determine appropriate antibiotics. Patient initial blood culture is positive, concerns for contaminant and awaiting repeat and finalized culture per ID recommendations We will continue to follow with orthopedics during hospitalization. Thank you kindly for this consultation Recommend incentive spirometer use at least 10 times every hour while awake The impression and plan of care has been dictated by Rajni Garcia, Nurse Practitioner as directed. Dr. Villa MD I have performed a history and examination and MDM of this patient, discussed the same with the dictator, and agree with the dictator's assessment and plan as written ,documented as a scribe. Based on total visit time, I have performed more than 50% of the visit. Objective - Vital Signs Vital signs: Vital Signs Temp 98.3 F 07/20/24 07:11 Pulse 97 07/20/24 07:11 Resp 17 07/20/24 07:11 BP 124/82 07/20/24 07:11 Pulse Ox 94 L 07/20/24 07:11 FiO2 Intake & Output 07/19/24 07/20/2407/20/25 18:59 06:59 18:59 Intake Total 775 760 Output Total 25 Balance 750 760 Intake: IV 775 Oral 760 Output: Estimated Blood Loss 25 Other: Voiding Method Toilet # Voids 2 3 - Labs CBC & Chem 7: 07/22/24 05:55 07/23/24 05:12 Labs: Abnormal Lab Results - Last 24 Hours (Table) 07/20/24 07/20/24 Range/Units 06:09 06:09 RBC 3.53 L (4.10-5.20) X 10*6/uL Hgb 9.9 L (12.0-15.0) g/dL Hct 32.1 L (37.2-46.3) % MCHC 30.8 L (32.0-37.0) g/dL Sodium 130 L (137-145) mmol/L Glucose 103 H (74-99) mg/dL Total Protein 5.7 L (6.3-8.2) g/dL Albumin 3.4 L (3.5-5.0) g/dL Microbiology - Last 24 Hours (Table) 07/18/24 16:30 Blood Culture Gram Stain - Preliminary Blood Blood Culture - Preliminary Molecular ID
--- NOTE | 2024-07-21 15:00 | P.PN ---
Subjective Progress Note Date: 07/21/24 Principal diagnosis: Reason for follow-up is right hip surgical site infection and bacteremia Patient is a 58-year-old female with a past medical history significant for DVT hypothyroidism depression, Left leg infection with intact hardware on suppressive oral doxycycline admit to the hospital with right hip surgical site infection status post drainage operative report mentions superficial infection and not tracking below the fascia. On today's evaluation that is 07/21/2024, the patient continues to be afebrile, the patient is on room air and breathing comfortably, the Pt denies having any chest pain or cough, the patient denies having any abdominal pain no vomiting or any diarrhea, pain to the right hip is currently controlled. Patient did have creatinine 0.68 Vanco trough is 21.7 OR culture currently pending Objective - Vital Signs Vital signs: Vital Signs Temp 98.4 F 07/21/24 07:06 Pulse 83 07/21/24 07:06 Resp 15 07/21/24 07:06 BP 108/61 07/21/24 07:06 Pulse Ox 96 07/21/24 07:06 FiO2 Intake & Output 07/20/24 07/21/24 07/21/24 18:59 06:59 18:59 Intake Total 560 Balance 560 Weight 117.934 kg Intake: Oral 560 Other: Voiding Method Toilet Toilet Toilet # Voids 5 3 - Exam Middle-age female up in the chair in no distress Unlabored breathing Awake alert oriented x 3 Right hip site is dressed - Labs CBC & Chem 7: 07/20/24 06:09 07/21/24 05:43 Labs: Abnormal Lab Results - Last 24 Hours (Table) 07/21/24 Range/Units 05:43 Sodium 133 L (137-145) mmol/L Glucose 104 H (74-99) mg/dL Microbiology - Last 24 Hours (Table) 07/19/24 14:40 Gram Stain - Preliminary Hip - Right Wound Culture - Preliminary 07/19/24 14:45 Gram Stain - Preliminary Hip - Right Wound Culture - Preliminary 07/19/24 14:34 Gram Stain - Preliminary Hip - Right Wound Culture - Preliminary Assessment and Plan (1) Cellulitis of right leg Current Visit: Yes Status: Acute Code(s): L03.115 - CELLULITIS OF RIGHT LOWER LIMB SNOMED Code(s): 70496584839457896 (2) External incisional dehiscence Current Visit: Yes Status: Acute Code(s): T81.31XA - DISRUPTION OF EXTERNAL OPERATION (SURGICAL) WOUND, NEC, INIT SNOMED Code(s): 226691375769782 (3) Bacteremia Current Visit: Yes Status: Acute Code(s): R78.81 - BACTEREMIA SNOMED Code(s): 6945161 Plan: 1patient with the right hip surgical site superficial necrosis and infection in this patient who is status post surgical debridement will need to cover for resistant gram-positive as well as gram-negative pathogen 2-local cultures currently pending blood culture showing staph epi with a question of possible skin contamination versus related to the right hip surgical site infection 3-blood culture has been repeated document to document clearance of bacteremia we are still waiting for the OR culture to be finalized to determine her discharge antibiotic for now continue with the vancomycin Dictation was produced using [employer] dictation software. please excuse any grammatical, word or spelling errors. Time with Patient: Less than 30
[2024-07-21] MEDS: VANCOMYCIN 1,500 MG in SODIUM CHLORIDE 0.9% 500 ML 500 ML IVPB SCH (18:08)
--- NOTE | 2024-07-22 06:35 | P.PN ---
Subjective Progress Note Date: 07/21/24 - Reason for Consult Consult date: 07/19/24 Medical management, incisional infection of total right hip - History of Present Illness This is a very pleasant 58-year-old female who presented to the emergency department with concerns for recent right hip arthroplasty with concerns of dehiscence and drainage from the site. Patient admitted under orthopedics with infectious disease and general medicine on consult for management. Patient is status post right total hip arthroplasty on June 23, 2024 secondary to severe right hip osteoarthritis was reported to be doing well although patient noticed the incision site opening up and was sent in for further evaluation. Labs reviewed reveal a white count of 8.3, hemoglobin is stable at 12.1, platelets 290, sodium 134 with a potassium of 3.5, BUN 12 and creatinine is 0.78, CRP is mildly elevated at 2.4. Patient is scheduled to undergo surgical intervention in the OR and will await official report. Home medications reviewed and will be resumed as appropriate. Patient does follow with Dr. Espinoza in the outpatient setting and medicine was consulted for management. 07/20/2024 Patient is seen and evaluated in follow-up today with no acute overnight issues noted. Patient wants to leave although is awaiting finalized cultures to determine appropriate antibiotics per ID recommendations. Initial blood cultures are positive and will need to await for clearance of bacteremia and finalized cultures. Patient is afebrile with no reports of chest pain or shortness of breath. Patient has been tolerating diet with no reported nausea or vomiting. Patient is status post external incisional dehiscence repair and deep cultures. Deep cultures thus far are pending and initially negative. 07/21/2024 Patient is seen in follow-up today reports to feeling well and would really like to go home. Infectious disease and orthopedics following and awaiting finalized cultures. Per orthopedics patient is medically stable once antibiotic recommendations have been given. Initial blood cultures were positive and repeat blood cultures thus far negative for 24 hours although initial wound culture is now showing Proteus Mirabellas preliminary and recommended waiting till cultures are finalized. Patient has been up and walking and is currently sitting up in the chair. Patient is afebrile denies any chest pain or shortness of breath. Patient has been tolerating diet. Review of systems: Constitutional: No reports of fatigue, fever, or chills Cardiovascular: No reports of chest pain or palpitations Respiratory: No reports of shortness of breath or cough GI: No reports of nausea, vomiting, or diarrhea : No reports of dysuria or retention Neurovascular: No reports of weakness or numbness All medications have been reviewed The rest of the 14-point review of systems is negative. PHYSICAL EXAMINATION: GENERAL: The patient is alert and oriented x3, not in any acute distress. Mildly anxious, well developed, well nourished. Morbidly obese HEENT: Pupils are round and equally reacting to light. EOMI. No scleral icterus. No conjunctival pallor. Normocephalic, atraumatic. No pharyngeal erythema. No thyromegaly. CARDIOVASCULAR: S1 and S2 present. No murmurs, rubs, or gallops. PULMONARY: Chest is clear to auscultation, no wheezing or crackles. ABDOMEN: Soft, nontender, nondistended, normoactive bowel sounds. No palpable organomegaly. MUSCULOSKELETAL: No joint swelling or deformity. EXTREMITIES: No cyanosis, clubbing, or pedal edema. Right hip surgical site dressing is dry and intact NEUROLOGICAL: Gross neurological examination did not reveal any focal deficits. SKIN: No rashes. Assessment: Recent right hip arthroplasty site dehiscence with drainage, concern for possible infection, status post external incisional dehiscence repair with deep cultures obtained. Preliminary wound cultures growing Proteus Mirabilis and awaiting finalized cultures Positive blood cultures with gram-positive cocci in clusters, concern for possible contaminant awaiting repeat cultures. Repeat blood cultures thus far are negative for 24 hours Recent right total hip arthroplasty June 23, 2024, elective History of DVT History of thyroid disorder History of depression Morbid obesity with a BMI of 43.3 GI prophylaxis DVT prophylaxis Full code Plan: Patient was admitted under orthopedic services underwent washout and closure of the site with deep cultures obtained. Initial preliminary cultures now showing Proteus mirabilis and repeat blood cultures are negative. Awaiting finalized cultures to determine appropriate discharge antibiotics per ID recommendations Home medications reviewed and resumed as appropriate We will continue to follow with orthopedics during hospitalization. Thank you kindly for this consultation Recommend incentive spirometer use at least 10 times every hour while awake The impression and plan of care has been dictated by Rajni Garcia, Nurse Practitioner as directed. Dr. Oz MD I have performed a history and examination and MDM of this patient, discussed the same with the dictator, and agree with the dictator's assessment and plan as written ,documented as a scribe. Based on total visit time, I have performed more than 50% of the visit. Objective - Vital Signs Vital signs: Vital Signs Temp 98.4 F 07/21/24 07:06 Pulse 83 07/21/24 07:06 Resp 15 07/21/24 07:06 BP 108/61 07/21/24 07:06 Pulse Ox 96 07/21/24 07:06 FiO2 Intake & Output 07/20/24 07/21/24 07/21/24 18:59 06:59 18:59 Intake Total 560 Balance 560 Weight 117.934 kg Intake: Oral 560 Other: Voiding Method Toilet Toilet Toilet # Voids 5 3 - Labs CBC & Chem 7: 07/20/24 06:09 07/21/24 05:43 Labs: Abnormal Lab Results - Last 24 Hours (Table) 07/21/24 Range/Units 05:43 Sodium 133 L (137-145) mmol/L Glucose 104 H (74-99) mg/dL Microbiology - Last 24 Hours (Table) 07/19/24 14:40 Gram Stain - Preliminary Hip - Right Wound Culture - Preliminary 07/19/24 14:45 Gram Stain - Preliminary Hip - Right Wound Culture - Preliminary 07/19/24 14:34 Gram Stain - Preliminary Hip - Right Wound Culture - Preliminary 07/18/24 16:30 Blood Culture Gram Stain - Preliminary Blood Blood Culture - Preliminary Molecular ID
--- NOTE | 2024-07-22 08:38 | P.PN ---
Subjective Progress Note Date: 07/22/24 Overall the patient is doing well in regards to her hip. She has no pain. She is frustrated she is still in the hospital and having multiple attempts at drawing blood. She denies fevers or chills. Objective - Vital Signs Vital signs: Vital Signs Temp 98.2 F 07/22/24 06:52 Pulse 66 07/22/24 06:52 Resp 16 07/22/24 06:52 BP 108/77 07/22/24 06:52 Pulse Ox 97 07/22/24 06:52 FiO2 Intake & Output 07/21/24 07/22/24 07/22/24 18:59 06:59 18:59 Other: Voiding Method Toilet Toilet # Voids 4 3 - Exam The patient is resting comfortably in bed. She is alert and able to answer questions. On inspection of the right hip there is no erythema. Her incisional wound VAC is intact with good seal. - Labs CBC & Chem 7: 07/20/24 06:09 07/21/24 05:43 Labs: Microbiology - Last 24 Hours (Table) 07/19/24 14:34 Gram Stain - Preliminary Hip - Right Wound Culture - Preliminary Proteus mirabilis 07/19/24 14:40 Gram Stain - Final Hip - Right Wound Culture - Final 07/19/24 14:45 Gram Stain - Final Hip - Right Wound Culture - Final 07/20/24 09:24 Blood Culture - Preliminary Blood 07/18/24 16:30 Blood Culture Gram Stain - Preliminary Blood Blood Culture - Preliminary Coagulase Negative Staph Molecular ID Assessment and Plan Assessment: Postop total hip with acute postoperative wound dehiscence status post I&D and revision closure Plan: The patient is doing well in regards to her hip. We are waiting for blood cultures to be negative. As soon as infectious disease clears the patient she is okay to discharge home. I will defer choice of antibiotic and route of administration to infectious disease.
[2024-07-22 09:23] LABS: Basophils # (A) 0.06 X 10*3/uL (0.00-0.10); Basophils % (A) 0.9 %; Eosinophils # (A) 0.38 X 10*3/uL (0.04-0.35); Eosinophils % (A) 5.8 %; HCT 32.4 % (37.2-46.3); HGB 9.8 g/dL (12.0-15.0); Lymphocytes # (A) 1.25 X 10*3/uL (0.90-5.00); Lymphocytes % (A) 18.9 %; MCH 27.5 pg (27.0-32.0); MCHC 30.2 g/dL (32.0-37.0); MCV 90.8 FL (80.0-97.0); Mean Platelet Volume 11.8 FL (9.5-12.2); Monocytes % (A) 9.1 %; NRBC Per 100 WBC 0 X 10*3/uL (0.00-0.01); Neutrophils # (A) 4.28 X 10*3/uL (1.80-7.70); Neutrophils % (A) 64.8 %; Platelet Count 242 X 10*3/uL (140-440); RBC 3.57 X 10*6/uL (4.10-5.20)
--- NOTE | 2024-07-22 12:19 | P.PN ---
Subjective Progress Note Date: 07/22/24 This is a very pleasant 58-year-old female who presented to the emergency department with concerns for recent right hip arthroplasty with concerns of dehiscence and drainage from the site. Patient admitted under orthopedics with infectious disease and general medicine on consult for management. Patient is status post right total hip arthroplasty on June 23, 2024 secondary to severe right hip osteoarthritis was reported to be doing well although patient noticed the incision site opening up and was sent in for further evaluation. Labs reviewed reveal a white count of 8.3, hemoglobin is stable at 12.1, platelets 290, sodium 134 with a potassium of 3.5, BUN 12 and creatinine is 0.78, CRP is mildly elevated at 2.4. Patient is scheduled to undergo surgical intervention in the OR and will await official report. Home medications reviewed and will be resumed as appropriate. Patient does follow with Dr. Espinoza in the outpatient setting and medicine was consulted for management. 07/20/2024 Patient is seen and evaluated in follow-up today with no acute overnight issues noted. Patient wants to leave although is awaiting finalized cultures to determine appropriate antibiotics per ID recommendations. Initial blood cultures are positive and will need to await for clearance of bacteremia and finalized cultures. Patient is afebrile with no reports of chest pain or shortness of breath. Patient has been tolerating diet with no reported nausea or vomiting. Patient is status post external incisional dehiscence repair and deep cultures. Deep cultures thus far are pending and initially negative. 07/21/2024 Patient is seen in follow-up today reports to feeling well and would really like to go home. Infectious disease and orthopedics following and awaiting finalized cultures. Per orthopedics patient is medically stable once antibiotic recommendations have been given. Initial blood cultures were positive and repeat blood cultures thus far negative for 24 hours although initial wound culture is now showing Proteus Mirabellas preliminary and recommended waiting till cultures are finalized. Patient has been up and walking and is currently sitting up in the chair. Patient is afebrile denies any chest pain or shortness of breath. Patient has been tolerating diet. Right hip surgical incision seen 07/22. Patient seen and examined. Labs reviewed showed WBC 6.6, hemoglobin 0.8, platelet count 242. States right hip pain is improved REVIEW OF SYSTEMS: CONSTITUTIONAL: No fever, no malaise,. CARDIOVASCULAR: No chest pain, no palpitations, no syncope. PULMONARY: No shortness of breath, no cough, GASTROINTESTINAL: No diarrhea, no nausea, no vomiting, no abdominal pain. NEUROLOGICAL: No headaches, no weakness, PHYSICAL EXAMINATION: GENERAL: The patient is alert and oriented x3, not in any acute distress. Well developed, well nourished. HEENT: Pupils are round and equally reacting to light. EOMI. No scleral icterus. No conjunctival pallor. Normocephalic, atraumatic. No pharyngeal erythema. No thyromegaly. CARDIOVASCULAR: S1 and S2 present. No murmurs, rubs, or gallops. PULMONARY: Chest is clear to auscultation, no wheezing or crackles. ABDOMEN: Soft, nontender, nondistended, normoactive bowel sounds. No palpable organomegaly. MUSCULOSKELETAL: No joint swelling or deformity. Right hip surgical incision seen EXTREMITIES: No cyanosis, clubbing, or pedal edema. NEUROLOGICAL: Gross neurological examination did not reveal any focal deficits. SKIN: No rashes. Assessment and plan Recent right hip arthroplasty site dehiscence with drainage, concern for possible infection, status post external incisional dehiscence repair with deep cultures obtained. Preliminary wound cultures growing Proteus Mirabilis and awaiting finalized cultures Positive blood cultures with gram-positive cocci in clusters, concern for possible contaminant awaiting repeat cultures. Repeat blood cultures thus far are negative for 24 hours Recent right total hip arthroplasty June 23, 2024, elective History of DVT History of thyroid disorder History of depression Morbid obesity with a BMI of 43.3 Monitor vital signs Monitor CBC Monitor CMP Follow-up on blood culture Follow-up on wound culture Continue cefepime Vanco ID following Orthopedic following Labs and medication were reviewed.. Continue same treatment. Continue with symptomatic treatment. Resume home medication. Monitor labs and vitals. DVT and GI prophylaxis. Further recommendations as per clinical course of the patient Dictation was produced using [employer] dictation software. please excuse any grammatical, word or spelling errors. Objective - Vital Signs Vital signs: Vital Signs Temp 98.2 F 07/22/24 06:52 Pulse 66 07/22/24 06:52 Resp 16 07/22/24 06:52 BP 108/77 07/22/24 06:52 Pulse Ox 97 07/22/24 06:52 FiO2 Intake & Output 07/21/24 07/22/24 07/22/24 18:59 06:59 18:59 Other: Voiding Method Toilet Toilet # Voids 4 3 - Labs CBC & Chem 7: 07/22/24 05:55 07/21/24 05:43 Labs: Abnormal Lab Results - Last 24 Hours (Table) 07/22/24 Range/Units 05:55 RBC 3.57 L (4.10-5.20) X 10*6/uL Hgb 9.8 L (12.0-15.0) g/dL Hct 32.4 L (37.2-46.3) % MCHC 30.2 L (32.0-37.0) g/dL Eosinophils # 0.38 H (0.04-0.35) X 10*3/uL Microbiology - Last 24 Hours (Table) 07/19/24 14:34 Gram Stain - Preliminary Hip - Right Wound Culture - Preliminary Proteus mirabilis 07/19/24 14:40 Gram Stain - Final Hip - Right Wound Culture - Final 07/19/24 14:45 Gram Stain - Final Hip - Right Wound Culture - Final 07/20/24 09:24 Blood Culture - Preliminary Blood 07/18/24 16:30 Blood Culture Gram Stain - Preliminary Blood Blood Culture - Preliminary Coagulase Negative Staph Molecular ID
--- NOTE | 2024-07-22 16:09 | P.PN ---
Subjective Progress Note Date: 07/22/24 Principal diagnosis: Reason for follow-up is right hip surgical site infection and bacteremia Patient is a 58-year-old female with a past medical history significant for DVT hypothyroidism depression, Left leg infection with intact hardware on suppressive oral doxycycline admit to the hospital with right hip surgical site infection status post drainage operative report mentions superficial infection and not tracking below the fascia. On today's evaluation that is 07/22/2024, patient did not have any fever and denies any chills, patient is breathing comfortably on room air, patient with no chest pain or cough patient did not have any abdominal pain nausea vomiting or any loose stools pain to the right hip site is currently controlled. Patient white count 6.60 creatinine 0.68 culture from the right hip site is growing Proteus Mirabelis with sensitivities pending. Objective - Vital Signs Vital signs: Vital Signs Temp 98.2 F 07/22/24 06:52 Pulse 66 07/22/24 06:52 Resp 16 07/22/24 06:52 BP 108/77 07/22/24 06:52 Pulse Ox 97 07/22/24 06:52 FiO2 Intake & Output 07/21/24 07/22/24 07/22/24 18:59 06:59 18:59 Other: Voiding Method Toilet Toilet # Voids 4 3 - Exam Middle-age female up in the chair in no distress Unlabored breathing Awake alert oriented x 3 Right hip site is dressed - Labs CBC & Chem 7: 07/22/24 05:55 07/21/24 05:43 Labs: Abnormal Lab Results - Last 24 Hours (Table) 07/22/24 Range/Units 05:55 RBC 3.57 L (4.10-5.20) X 10*6/uL Hgb 9.8 L (12.0-15.0) g/dL Hct 32.4 L (37.2-46.3) % MCHC 30.2 L (32.0-37.0) g/dL Eosinophils # 0.38 H (0.04-0.35) X 10*3/uL Microbiology - Last 24 Hours (Table) 07/19/24 14:34 Gram Stain - Preliminary Hip - Right Wound Culture - Preliminary Proteus mirabilis 07/19/24 14:40 Gram Stain - Final Hip - Right Wound Culture - Final 07/19/24 14:45 Gram Stain - Final Hip - Right Wound Culture - Final 07/20/24 09:24 Blood Culture - Preliminary Blood 07/18/24 16:30 Blood Culture Gram Stain - Preliminary Blood Blood Culture - Preliminary Coagulase Negative Staph Molecular ID Assessment and Plan (1) Cellulitis of right leg Current Visit: Yes Status: Acute Code(s): L03.115 - CELLULITIS OF RIGHT LOWER LIMB SNOMED Code(s): 12236180442580694 (2) External incisional dehiscence Current Visit: Yes Status: Acute Code(s): T81.31XA - DISRUPTION OF EXTERNAL OPERATION (SURGICAL) WOUND, NEC, INIT SNOMED Code(s): 294714687824811 (3) Bacteremia Current Visit: Yes Status: Acute Code(s): R78.81 - BACTEREMIA SNOMED Code(s): 3552541 Plan: 1patient with the right hip surgical site superficial necrosis and infection in this patient who is status post surgical debridement will need to cover for resistant gram-positive as well as gram-negative pathogen 2-local cultures currently pending blood culture showing staph epi with a question of possible skin contamination, blood culture repeat so far negative 3-right hip site is currently growing Proteus with sensitivities pending covered with cefepime patient has been insisting on going home for the last 2 days once again discussed in detail with the patient to wait till sensitivities are finalized, if the pathogen is sensitive to Cipro which has good oral bioaviability that that would be a choice otherwise short course of IV may be a better option which may not be possible to arrange on a Wednesday will discuss further with the patient once the sensitivities are finalized tomorrow for now continue with the cefepime and Vanco care was also discussed with the orthopedic surgeon on the phone Dictation was produced using [employer] dictation software. please excuse any grammatical, word or spelling errors.
[2024-07-23 02:28] VITALS: RESP 18
[2024-07-23 06:25] LABS: African American GFR (CKD) >90 (>60 ml/min/1.73 sqM); Non-African American GFR(CKD) >90 (>60 ml/min/1.73 sqM)
--- NOTE | 2024-07-23 07:42 | P.PN ---
Subjective Progress Note Date: 07/23/24 This is a very pleasant 58-year-old female who presented to the emergency department with concerns for recent right hip arthroplasty with concerns of dehiscence and drainage from the site. Patient admitted under orthopedics with infectious disease and general medicine on consult for management. Patient is status post right total hip arthroplasty on June 23, 2024 secondary to severe right hip osteoarthritis was reported to be doing well although patient noticed the incision site opening up and was sent in for further evaluation. Labs reviewed reveal a white count of 8.3, hemoglobin is stable at 12.1, platelets 290, sodium 134 with a potassium of 3.5, BUN 12 and creatinine is 0.78, CRP is mildly elevated at 2.4. Patient is scheduled to undergo surgical intervention in the OR and will await official report. Home medications reviewed and will be resumed as appropriate. Patient does follow with Dr. Espinoza in the outpatient setting and medicine was consulted for management. 07/20/2024 Patient is seen and evaluated in follow-up today with no acute overnight issues noted. Patient wants to leave although is awaiting finalized cultures to determine appropriate antibiotics per ID recommendations. Initial blood cultures are positive and will need to await for clearance of bacteremia and finalized cultures. Patient is afebrile with no reports of chest pain or shortness of breath. Patient has been tolerating diet with no reported nausea or vomiting. Patient is status post external incisional dehiscence repair and deep cultures. Deep cultures thus far are pending and initially negative. 07/21/2024 Patient is seen in follow-up today reports to feeling well and would really like to go home. Infectious disease and orthopedics following and awaiting finalized cultures. Per orthopedics patient is medically stable once antibiotic recommendations have been given. Initial blood cultures were positive and repeat blood cultures thus far negative for 24 hours although initial wound culture is now showing Proteus Mirabellas preliminary and recommended waiting till cultures are finalized. Patient has been up and walking and is currently sitting up in the chair. Patient is afebrile denies any chest pain or shortness of breath. Patient has been tolerating diet. Right hip surgical incision seen 07/22. Patient seen and examined. Labs reviewed showed WBC 6.6, hemoglobin 0.8, platelet count 242. States right hip pain is improved 07/23. Patient seen examined. Sitting upright in the chair, denies any acute events overnight. Currently waiting on culture sensitivities REVIEW OF SYSTEMS: CONSTITUTIONAL: No fever, no malaise,. CARDIOVASCULAR: No chest pain, no palpitations, no syncope. PULMONARY: No shortness of breath, no cough, GASTROINTESTINAL: No diarrhea, no nausea, no vomiting, no abdominal pain. NEUROLOGICAL: No headaches, no weakness, PHYSICAL EXAMINATION: GENERAL: The patient is alert and oriented x3, not in any acute distress. Well developed, well nourished. HEENT: Pupils are round and equally reacting to light. EOMI. No scleral icterus. No conjunctival pallor. Normocephalic, atraumatic. No pharyngeal erythema. No thyromegaly. CARDIOVASCULAR: S1 and S2 present. No murmurs, rubs, or gallops. PULMONARY: Chest is clear to auscultation, no wheezing or crackles. ABDOMEN: Soft, nontender, nondistended, normoactive bowel sounds. No palpable organomegaly. MUSCULOSKELETAL: No joint swelling or deformity. Right hip surgical incision seen EXTREMITIES: No cyanosis, clubbing, or pedal edema. NEUROLOGICAL: Gross neurological examination did not reveal any focal deficits. SKIN: No rashes. Assessment and plan Recent right hip arthroplasty site dehiscence with drainage, concern for possible infection, status post external incisional dehiscence repair with deep cultures obtained. Preliminary wound cultures growing Proteus Mirabilis and awaiting finalized cultures Positive blood cultures with gram-positive cocci in clusters, concern for possible contaminant awaiting repeat cultures. Repeat blood cultures thus far are negative for 24 hours Recent right total hip arthroplasty June 23, 2024, elective History of DVT History of thyroid disorder History of depression Morbid obesity with a BMI of 43.3 Monitor vital signs Monitor CBC Monitor CMP Follow-up on blood culture Follow-up on wound culture, waiting on sensitivities Continue cefepime Vanco ID following Orthopedic following Labs and medication were reviewed.. Continue same treatment. Continue with symptomatic treatment. Resume home medication. Monitor labs and vitals. DVT and GI prophylaxis. Further recommendations as per clinical course of the patient Dictation was produced using [employer] dictation software. please excuse any grammatical, word or spelling errors. Objective - Vital Signs Vital signs: Vital Signs Temp 97.8 F 07/23/24 00:45 Pulse 73 07/23/24 00:45 Resp 18 07/23/24 00:45 BP 102/65 07/23/24 00:45 Pulse Ox 96 07/23/24 00:45 FiO2 Intake & Output 07/22/24 07/23/24 07/23/24 18:59 06:59 18:59 Intake Total 480 Balance 480 Intake: Oral 480 Other: Voiding Method Toilet # Voids 2 3 - Labs CBC & Chem 7: 07/22/24 05:55 07/23/24 05:12 Labs: Abnormal Lab Results - Last 24 Hours (Table) 07/22/24 Range/Units 05:55 RBC 3.57 L (4.10-5.20) X 10*6/uL Hgb 9.8 L (12.0-15.0) g/dL Hct 32.4 L (37.2-46.3) % MCHC 30.2 L (32.0-37.0) g/dL Eosinophils # 0.38 H (0.04-0.35) X 10*3/uL Microbiology - Last 24 Hours (Table) 07/19/24 14:34 Gram Stain - Final Hip - Right Wound Culture - Final Proteus mirabilis 07/20/24 09:24 Blood Culture - Preliminary Blood 07/18/24 16:30 Blood Culture Gram Stain - Final Blood Blood Culture - Final Staphylococcus epidermidis Molecular ID
[2024-07-23] MEDS: VANCOMYCIN TROUGH DUE 1 EACH MISC MISCELLANE ONE (08:38)
[2024-07-23 08:53] VITALS: BP 121/63; PULSE 78; TEMP 98
--- NOTE | 2024-07-23 09:34 | P.PN ---
Subjective The patient is complaining of multiple attempts at blood draws. She is otherwise doing well. She denies fevers or chills. Her hip is nonpainful. Objective - Vital Signs Vital signs: Vital Signs Temp 98 F 07/23/24 07:53 Pulse 78 07/23/24 07:53 Resp 18 07/23/24 07:53 BP 121/63 07/23/24 07:53 Pulse Ox 100 07/23/24 07:53 FiO2 Intake & Output 07/22/24 07/23/24 07/23/24 18:59 06:59 18:59 Intake Total 480 Balance 480 Intake: Oral 480 Other: Voiding Method Toilet # Voids 2 3 - Exam Sitting up at bedside in the chair. No apparent distress. Alert and able to answer questions. Incisional wound VAC is intact with good seal. The patient can actively extend her knee. She can plantarflex and dorsiflex her ankle and her toes. - Labs CBC & Chem 7: 07/22/24 05:55 07/23/24 05:12 Labs: Microbiology - Last 24 Hours (Table) 07/19/24 14:34 Gram Stain - Final Hip - Right Wound Culture - Final Proteus mirabilis 07/20/24 09:24 Blood Culture - Preliminary Blood 07/18/24 16:30 Blood Culture Gram Stain - Final Blood Blood Culture - Final Staphylococcus epidermidis Molecular ID Assessment and Plan Plan: Continue treatment as outlined previously. The patient is okay to discharge from an orthopedic standpoint. We are awaiting final recommendations from infectious disease for antibiotics. The patient is hoping to discharge home today.
--- NOTE | 2024-07-23 11:34 | P.DS ---
Providers Date of admission: 07/18/24 17:26 Attending physician: Jhonny Calderón Consults: 07/19/24 09:08 Consult Physician Routine Consulting Provider: Jam Brown Consult Reason/Comments: Medical managment Do you want consulting provider notified?: Yes 07/19/24 11:20 Consult Physician Urgent Consulting Provider: Rajiv Aldana Consult Reason/Comments: Total right hip incisional drainage and possible infection Do you want consulting provider notified?: Yes Primary care physician: Aracely Espinoza [facility] Course: The patient is a very pleasant 58 year old female who was admitted 3 weeks follo wing a left total hip replacement with superficial wound dehiscence. She was taken to the OR and had a superficial I&D and revision closure. Superficial wound cultures were taken. The wound did not track deep. She was treated with IV vancomycin until her cultures finalized at which point she was discharged home on PO antibiotics. Patient Condition at Discharge: Good Plan - Discharge Summary Discharge Rx Participant: Yes New Discharge Prescriptions: New cefuroxime axetiL [Ceftin] 500 mg PO BID #28 tab No Action Levothyroxine Sodium [Synthroid] 75 mcg PO DAILY Cyanocobalamin [Vitamin B-12] 500 mcg PO DAILY metOLazone [Zaroxolyn] 2.5 mg PO MOWEFR Cholecalciferol [Vitamin D3 (25 Mcg = 1000 Iu)] 1 tab PO DAILY Doxycycline Hyclate 100 mg PO BID Propranolol HCl 80 mg PO DAILY Benztropine Mesylate 1 mg PO BID Rivaroxaban [Xarelto] 10 mg PO DAILY #35 tab OXcarbazepine [Trileptal] 300 mg PO BID ARIPiprazole [Abilify] 20 mg PO DAILY Spironolactone 50 mg PO DAILY Acetaminophen Tab [Tylenol] 1,000 mg PO Q6HR PRN PRN Reason: Pain Discharge Medication List Cyanocobalamin [Vitamin B-12] 500 mcg PO DAILY 10/02/14 [History] Levothyroxine Sodium [Synthroid] 75 mcg PO DAILY 10/02/14 [History] metOLazone [Zaroxolyn] 2.5 mg PO MOWEFR 10/09/14 [History] Cholecalciferol [Vitamin D3 (25 Mcg = 1000 Iu)] 1 tab PO DAILY 02/19/15 [History] Doxycycline Hyclate 100 mg PO BID 03/26/15 [History] ARIPiprazole [Abilify] 20 mg PO DAILY 06/20/24 [History] Benztropine Mesylate 1 mg PO BID 06/20/24 [History] OXcarbazepine [Trileptal] 300 mg PO BID 06/20/24 [History] Propranolol HCl 80 mg PO DAILY 06/20/24 [History] Spironolactone 50 mg PO DAILY 06/20/24 [History] Acetaminophen Tab [Tylenol] 1,000 mg PO Q6HR PRN 06/23/24 [History] Rivaroxaban [Xarelto] 10 mg PO DAILY #35 tab 06/26/24 [Rx] cefuroxime axetiL [Ceftin] 500 mg PO BID #28 tab 07/23/24 [Rx] Follow up Appointment(s)/Referral(s): Aracely Espinoza MD [Primary Care Provider] - 1-2 days Rajiv Aldana MD [STAFF PHYSICIAN] - 1 Week Jhonny Calderón MD [Medical Doctor] - 2 Weeks Activity/Diet/Wound Care/Special Instructions: 1. Weight-bear as tolerated on your operative extremity unless instructed otherwise. Use a walker or other assistive device to ambulate. 2. Leave surgical dressing in place. If your dressing becomes saturated with blood, there is drainage, or the dressing becomes loose please contact the office. 3. It is okay to shower with your surgical dressing, but do not submerge in water (no hot tubs, bath's, swimming etc.) 4. Take your blood clot prevention medication as prescribed (aspirin, Eliquis, Xarelto, and Plavix are commonly prescribed medications for blood clot prevention) 5. While taking Loa or Percocet for pain take a stool softener (Ex: Colace) and drink lots of water. 6. Keep all follow-up appointments as scheduled. You will usually be seen in 1-2 weeks following surgery. 7. Please contact the office with any questions or concerns [phone] Discharge Disposition: HOME SELF-CARE
--- NOTE | 2024-07-23 12:50 | P.PN ---
Subjective Progress Note Date: 07/23/24 Principal diagnosis: Reason for follow-up is right hip surgical site infection and bacteremia Patient is a 58-year-old female with a past medical history significant for DVT hypothyroidism depression, Left leg infection with intact hardware on suppressive oral doxycycline admit to the hospital with right hip surgical site infection status post drainage operative report mentions superficial infection and not tracking below the fascia. On today's evaluation that is 07/23/2024, Patient is afebrile patient is currently on room air and denies having any shortness of breath, the patient denies any chest pain or cough, the patient denies any nausea vomiting did not have any abdominal pain and no diarrhea, pain to the right hip is currently controlled patient feeling better has been sitting on going home. Patient did have white count 6.6 urine yesterday creatinine 0.65 local culture with Proteus Mirabella's that is sensitive to ceftriaxone and cefuroxime resistant to Cipro Objective - Vital Signs Vital signs: Vital Signs Temp 98 F 07/23/24 07:53 Pulse 78 07/23/24 07:53 Resp 18 07/23/24 07:53 BP 121/63 07/23/24 07:53 Pulse Ox 100 07/23/24 07:53 FiO2 Intake & Output 07/22/24 07/23/24 07/23/24 18:59 06:59 18:59 Intake Total 480 Balance 480 Intake: Oral 480 Other: Voiding Method Toilet # Voids 2 3 - Exam Middle-age female up in the chair in no distress Unlabored breathing, clear to auscultation Abdomen soft no tenderness Awake alert oriented x 3 Right hip site is covered with prevana - Labs CBC & Chem 7: 07/22/24 05:55 07/23/24 05:12 Labs: Microbiology - Last 24 Hours (Table) 07/19/24 14:34 Gram Stain - Final Hip - Right Wound Culture - Final Proteus mirabilis 07/20/24 09:24 Blood Culture - Preliminary Blood 07/18/24 16:30 Blood Culture Gram Stain - Final Blood Blood Culture - Final Staphylococcus epidermidis Molecular ID Assessment and Plan (1) Cellulitis of right leg Current Visit: Yes Status: Acute Code(s): L03.115 - CELLULITIS OF RIGHT LOWER LIMB SNOMED Code(s): 16627287520591348 (2) External incisional dehiscence Current Visit: Yes Status: Acute Code(s): T81.31XA - DISRUPTION OF EXTERNAL OPERATION (SURGICAL) WOUND, NEC, INIT SNOMED Code(s): 465931445164703 (3) Bacteremia Current Visit: Yes Status: Acute Code(s): R78.81 - BACTEREMIA SNOMED Code(s): 6724390 Plan: 1patient with the right hip surgical site superficial necrosis and infection in this patient who is status post surgical debridement will need to cover for resistant gram-positive as well as gram-negative pathogen 2-local cultures currently pending blood culture showing staph epi with a question of possible skin contamination, blood culture repeat so far negative 3-right hip site is currently growing Proteus which is sensitive to Rocephin and cefepime as well as cefuroxime but resistant to Cipro patient has been offered IV antibiotic on discharge and she is refusing prescription for oral Ceftin sent to the pharmacy will reeval the patient office in 1 to 2 weeks also advised to continue with the doxycycline as she was taking on admission to the hospital for the right leg infected hardware Dictation was produced using [employer] dictation software. please excuse any gramma tical, word or spelling errors.
[2024-07-23] MEDS ORDERED: VANCOMYCIN 1,750 MG in SODIUM CHLORIDE 0.9% 500 ML 500 ML IVPB SCH (18:00)
== END 2024-07-23 13:08 | disposition home health service (06) | DRG 857 ==
LOC: EC 12:59 → 4SSUR 17:26
PROVIDERS: ADMIT Orthopaedic Surgery; ATTEND Orthopaedic Surgery
PROC: 0JBL0ZZ Excision of Right Upper Leg Subcutaneous Tissue and Fascia, Open Approach (ICD-10-PCS; principal; 2024-07-19 10:30)
DX: T81.41XA Infection following a procedure, superficial incisional surgical site, initial encounter (principal); I96 Gangrene, not elsewhere classified; R78.81 Bacteremia; Z68.41 Body mass index [BMI] 40.0-44.9, adult; E03.9 Hypothyroidism, unspecified; F32.A Depression, unspecified; L03.115 Cellulitis of right lower limb; Z16.23 Resistance to quinolones and fluoroquinolones; T81.31XA Disruption of external operation (surgical) wound, not elsewhere classified, initial encounter; E66.01 Morbid (severe) obesity due to excess calories; B96.4 Proteus (mirabilis) (morganii) as the cause of diseases classified elsewhere; Z96.641 Presence of right artificial hip joint; Z79.01 Long term (current) use of anticoagulants; Z79.890 Hormone replacement therapy; Z79.899 Other long term (current) drug therapy; Z86.718 Personal history of other venous thrombosis and embolism; Z87.891 Personal history of nicotine dependence; Z86.14 Personal history of Methicillin resistant Staphylococcus aureus infection; Z79.2 Long term (current) use of antibiotics; Y83.8 Other surgical procedures as the cause of abnormal reaction of the patient, or of later complication, without mention of misadventure at the time of the procedure
CPT/HCPCS: 36415; 80048; 80053; 80183; 80202; 82565; 83605; 83735; 85025; 85610; 85730; 86140; 87040; 87070; 87077; 87186; 87205; 96365; 96367; 99284